=== PATIENT | female | born 1955 | race African-American/Black ===

== ENCOUNTER 2016-12-12 17:32 | Emergency (ER) | payer MEDICAID ==
--- NOTE | 2016-12-12 17:54 | ER Document Report ---
ED Medical Screen (RME) - General Chief Complaint: Post Surgical Pain Stated Complaint: PAIN,REDNESS,DRAINAGE AT SURGERY SITE Notes: Patient has drainage from his surgical site called her surgeon who advised she come to the emergency room for evaluation I greeted and performed a rapid initial assessment of this patient. Comprehensive ED assessment and evaluation of the patient, analysis of test results and completion of the medical decision making process will be conducted by additional ED providers. TRAVEL OUTSIDE OF THE [place] IN LAST 30 DAYS: No - Related Data Allergies/Adverse Reactions: No Known Allergies Allergy (Verified 11/09/16 11:16) Past Medical History - Past Medical History Cardiac Medical History: Reports: Hx Hypertension Denies: Hx Coronary Artery Disease, Hx Heart Attack Pulmonary Medical History: Denies: Hx Asthma, Hx Bronchitis, Hx COPD, Hx Pneumonia Neurological Medical History: Denies: Hx Cerebrovascular Accident, Hx Seizures Endocrine Medical History: Reports: Hx Diabetes Mellitus Type 2 GI Medical History: Reports: Hx Gastroesophageal Reflux Disease, Hx Hepatitis - C, Hx Hiatal Hernia Musculoskeltal Medical History: Denies Hx Arthritis, Reports Hx Multiple Sclerosis Infectious Medical History: Reports: Hx Hepatitis - C Past Surgical History: Reports: Hx Gynecologic Surgery - ectopic , fibroid tumor removed, ovarian cyst removed, Hx Hysterectomy, Hx Orthopedic Surgery - bunionectomy. Denies: Hx Pacemaker - Immunizations Immunizations up to date: Yes Hx Diphtheria, Pertussis, Tetanus Vaccination: Yes Physical Exam - Vital signs Vitals: Temp Pulse Resp BP Pulse Ox 98.3 F 85 18 112/78 99 12/12/16 17:52 12/12/16 17:52 12/12/16 17:52 12/12/16 17:52 12/12/16 17:52 Course - Vital Signs Vital signs: Temp Pulse Resp BP Pulse Ox 98.3 F 85 18 112/78 99 12/12/16 17:52 12/12/16 17:52 12/12/16 17:52 12/12/16 17:52 12/12/16 17:52
--- NOTE | 2016-12-12 18:42 | ER Document Report ---
ED Wound - General Chief Complaint: Incision Problem Stated Complaint: PAIN,REDNESS,DRAINAGE AT SURGERY SITE Time seen by provider: 18:42 Mode of Arrival: Ambulatory Information source: Patient TRAVEL OUTSIDE OF THE [place] IN LAST 30 DAYS: No - HPI Patient complains to provider of: Post surgical problem, Incision problem Occurred: Yesterday Onset/Duration: Intermittent Severity: Mild Skin Color: Normal Associated Symptoms: Drainage Notes: Patient is a 61-year-old female who recently had cervical spine surgery, states she had 2 metal discs placed, on Tuesday of this past week, she presents to the emergency room on the advice of her neurosurgeon for evaluation of her wound, patient reports over the past 2 days she has noticed a small amount of pus drainage from the wound, she is not currently on antibiotics, she denies a fever , no increased pain or swelling at the site, she does report a small amount of erythema - Related Data Allergies/Adverse Reactions: No Known Allergies Allergy (Verified 11/09/16 11:16) Past Medical History - General Information source: Patient - Social History Smoking Status: Never Smoker Family History: Reviewed & Not Pertinent Patient has suicidal ideation: No Patient has homicidal ideation: No - Past Medical History Cardiac Medical History: Reports: Hx Hypertension Denies: Hx Coronary Artery Disease, Hx Heart Attack Pulmonary Medical History: Denies: Hx Asthma, Hx Bronchitis, Hx COPD, Hx Pneumonia Neurological Medical History: Denies: Hx Cerebrovascular Accident, Hx Seizures Endocrine Medical History: Reports: Hx Diabetes Mellitus Type 2 Renal/ Medical History: Denies: Hx Peritoneal Dialysis GI Medical History: Reports: Hx Gastroesophageal Reflux Disease, Hx Hepatitis - C, Hx Hiatal Hernia Musculoskeltal Medical History: Denies Hx Arthritis, Reports Hx Multiple Sclerosis Infectious Medical History: Reports: Hx Hepatitis - C Past Surgical History: Reports: Hx Gynecologic Surgery - ectopic , fibroid tumor removed, ovarian cyst removed, Hx Hysterectomy, Hx Orthopedic Surgery - bunionectomy. Denies: Hx Pacemaker - Immunizations Immunizations up to date: Yes Hx Diphtheria, Pertussis, Tetanus Vaccination: Yes Hx Pneumococcal Vaccination: 11/28/00 Review of Systems - Review of Systems Constitutional: No symptoms reported EENT: No symptoms reported Cardiovascular: No symptoms reported Respiratory: No symptoms reported Gastrointestinal: No symptoms reported Genitourinary: No symptoms reported Female Genitourinary: No symptoms reported Musculoskeletal: No symptoms reported Skin: See HPI Hematologic/Lymphatic: No symptoms reported Neurological/Psychological: No symptoms reported -: Yes All other systems reviewed and negative Physical Exam - Vital signs Vitals: Temp Pulse Resp BP Pulse Ox 98.3 F 85 18 112/78 99 12/12/16 17:52 12/12/16 17:52 12/12/16 17:52 12/12/16 17:52 12/12/16 17:52 Interpretation: Normal - General General appearance: Appears well, Alert - HEENT Head: Normocephalic, Atraumatic Eyes: Normal Conjunctiva: Normal Extraocular movements intact: Yes Eyelashes: Normal Pupils: PERRL Neck: Other - Patient has a surgical incision to the right anterior portion of her neck, there is Dermabond overlying the wound, I am unable to express any drainage from the wound, there does not appear to be any area of wound dehiscence, there is mild tenderness over the wound, and a small 0.5 cm area of mild erythema at the most medial portion of the wound, no fluctuance - Respiratory Respiratory status: No respiratory distress Chest status: Nontender Breath sounds: Normal Chest palpation: Normal - Cardiovascular Rhythm: Regular Heart sounds: Normal auscultation Murmur: No - Abdominal Inspection: Normal Distension: No distension Bowel sounds: Normal Tenderness: Nontender Organomegaly: No organomegaly - Back Back: Normal, Nontender - Extremities General upper extremity: Normal inspection, Nontender, Normal color, Normal ROM , Normal temperature General lower extremity: Normal inspection, Nontender, Normal color, Normal ROM , Normal temperature, Normal weight bearing. No: Vijay's sign - Neurological Neuro grossly intact: Yes Cognition: Normal Orientation: AAOx4 [place] Coma Scale Eye Opening: Spontaneous [place] Coma Scale Verbal: Oriented [place] Coma Scale Motor: Obeys Commands [place] Coma Scale Total: 15 Speech: Normal Motor strength normal: LUE, RUE, LLE, RLE Sensory: Normal - Psychological Associated symptoms: Normal affect, Normal mood - Skin Skin Temperature: Warm Skin Moisture: Dry Skin Color: Normal Course - Re-evaluation Re-evalutation: 12/12/16 19:01 Patient was discussed with Dr. Calle, neurosurgeon who is partners with patient's Dr. Barker, he recommended patient be started on Bactrim DS twice a day until follow-up with Dr. barker, patient was given a dose of this in the emergency room and a prescription, she was advised to follow-up as scheduled or return if symptoms worsen, patient acknowledges understanding and agreement with this plan - Vital Signs Vital signs: Temp Pulse Resp BP Pulse Ox 98.3 F 85 18 112/78 99 12/12/16 17:52 12/12/16 17:52 12/12/16 17:52 12/12/16 17:52 12/12/16 17:52 Discharge - Discharge Clinical Impression: Wound drainage Condition: Stable Disposition: HOME, SELF-CARE Instructions: Wound Infection ([facility]) Additional Instructions: Follow up with your neurosurgeon as scheduled. Continue wound care as instructed by your surgeon. Return to the emergency room immediately if symptoms worsen or any additional concerns. Prescriptions: Sulfamethoxazole/Trimethoprim [Bactrim Ds Tablet] 1 each PO BID #20 tablet Referrals: MCKINLEY CONNOR MD [Primary Care Provider] - Follow up as needed
[2016-12-12] MEDS ORDERED: SULFAMETHOXAZOLE/TRIMETHOPRIM 800-160 MG TABLET PO ONE (18:47)
[2016-12-12 20:07] VITALS: BP 118/71
== END 2016-12-12 20:37 | disposition home or self-care (01) ==
LOC: ER 17:32
DX: Z47.89 Encounter for other orthopedic aftercare (principal); L53.9 Erythematous condition, unspecified; E11.9 Type 2 diabetes mellitus without complications; I10 Essential (primary) hypertension
CPT/HCPCS: 99283; J3490

== ENCOUNTER → 2016-12-24 | Outpatient (CLI) | payer MEDICAID | LOC: RAD 08:52 | PROVIDERS: ATTEND Specialist | DX: M54.12 Radiculopathy, cervical region (principal) | CPT/HCPCS: 72040 ==

== ENCOUNTER → 2017-02-15 | Outpatient (CLI) | payer MEDICAID ==
[2017-02-15 16:12] LABS: HEMATOCRIT 44.4 % (36.0-47.0); HEMOGLOBIN 15.1 g/dL (12.0-15.5); HGB HCT DIFFERENCE 0.9; MEAN CORPUSCULAR HEMOGLOBIN 30.4 pg (27.0-33.4); MEAN CORPUSCULAR VOLUME 89 fl (80-97); RED BLOOD COUNT 4.97 10^6/uL (3.72-5.28); RED CELL DISTRIBUTION WIDTH 12.4 % (11.5-14.0); WHITE BLOOD COUNT 12.2 10^3/uL (4.0-10.5)
[2017-02-15 16:20] LABS: ALANINE AMINOTRANSFERASE 26 U/L (9-52); ALBUMIN 4.6 g/dL (3.5-5.0); ALKALINE PHOSPHATASE 87 U/L (38-126); ASPARTATE AMINO TRANSFERASE 23 U/L (14-36); BILIRUBIN,DIRECT 0.2 mg/dL (0.0-0.4); BILIRUBIN,TOTAL 0.7 mg/dL (0.2-1.3); TOTAL PROTEIN 6.8 g/dL (6.3-8.2)
[2017-02-15 16:24] LABS: ALANINE AMINOTRANSFERASE 26 U/L (9-52); ALBUMIN 4.6 g/dL (3.5-5.0); ALKALINE PHOSPHATASE 87 U/L (38-126); ASPARTATE AMINO TRANSFERASE 23 U/L (14-36); BILIRUBIN,DIRECT 0.2 mg/dL (0.0-0.4); BILIRUBIN,TOTAL 0.7 mg/dL (0.2-1.3)
[2017-02-15 16:25] LABS: BASOPHILS % (MANUAL) 0 % (0-2); EOSINOPHILS % (MANUAL) 1 % (0-6); LYMPHOCYTES % (MANUAL) 63 % (13-45); TOTAL CELLS COUNTED 100; TOTAL PROTEIN 6.8 g/dL (6.3-8.2)
[2017-02-15 16:29] LABS: OVALOCYTES SLIGHT; POIKILOCYTOSIS SLIGHT
[2017-02-15 16:30] LABS: TEAR DROP CELLS SLIGHT
[2017-02-15 16:35] LABS: HEMATOCRIT 44.4 % (36.0-47.0); HEMOGLOBIN 15.1 g/dL (12.0-15.5); HGB HCT DIFFERENCE 0.9; MEAN CORPUSCULAR HEMOGLOBIN 30.4 pg (27.0-33.4); MEAN CORPUSCULAR VOLUME 89 fl (80-97); RED BLOOD COUNT 4.97 10^6/uL (3.72-5.28); RED CELL DISTRIBUTION WIDTH 12.4 % (11.5-14.0); WHITE BLOOD COUNT 12.2 10^3/uL (4.0-10.5)
[2017-02-15 16:36] LABS: BASOPHILS % (MANUAL) 0 % (0-2); EOSINOPHILS % (MANUAL) 1 % (0-6); LYMPHOCYTES % (MANUAL) 63 % (13-45); TOTAL CELLS COUNTED 100
[2017-02-15 16:37] LABS: OVALOCYTES SLIGHT; POIKILOCYTOSIS SLIGHT; TEAR DROP CELLS SLIGHT
== END ==
LOC: OD 14:41
DX: G35 Multiple sclerosis (principal); Z79.899 Other long term (current) drug therapy
CPT/HCPCS: 36415; 80076; 85025; 87522

== ENCOUNTER → 2017-02-15 | Outpatient (CLI) | payer MEDICAID | LOC: RAD 13:49 | PROVIDERS: ATTEND Specialist | DX: G35 Multiple sclerosis (principal); Z79.899 Other long term (current) drug therapy | CPT/HCPCS: 72040 ==

== ENCOUNTER → 2017-02-28 | Outpatient (CLI) | payer MEDICAID | LOC: OD 17:47 | PROVIDERS: ATTEND Plastic Surgery | DX: D22.4 Melanocytic nevi of scalp and neck (principal) | CPT/HCPCS: 88305 ==

== ENCOUNTER → 2017-03-16 | Outpatient (CLI) | payer MEDICAID ==
[2017-03-16 15:12] LABS: HEMATOCRIT 42.3 % (36.0-47.0); HEMOGLOBIN 14.4 g/dL (12.0-15.5); HGB HCT DIFFERENCE 0.9; MEAN CORPUSCULAR HGB CONC 34.1 g/dL (32.0-36.0); MEAN CORPUSCULAR VOLUME 88 fl (80-97); RED CELL DISTRIBUTION WIDTH 13.1 % (11.5-14.0); WHITE BLOOD COUNT 11.8 10^3/uL (4.0-10.5)
[2017-03-16 15:31] LABS: ALANINE AMINOTRANSFERASE 26 U/L (9-52); ALBUMIN 4.7 g/dL (3.5-5.0); ALKALINE PHOSPHATASE 76 U/L (38-126); ASPARTATE AMINO TRANSFERASE 20 U/L (14-36); BASOPHILS % (MANUAL) 0 % (0-2); BILIRUBIN,DIRECT 0.4 mg/dL (0.0-0.4); BILIRUBIN,TOTAL 0.9 mg/dL (0.2-1.3); EOSINOPHILS % (MANUAL) 2 % (0-6); TOTAL CELLS COUNTED 100; TOTAL PROTEIN 7.5 g/dL (6.3-8.2)
[2017-03-16 15:34] LABS: STOMATOCYTES SLIGHT
[2017-03-16 15:37] LABS: TARGET CELLS SLIGHT
[2017-03-16 15:39] LABS: LYMPHOCYTES % (MANUAL) 68 % (13-45)
== END ==
LOC: OD 14:18
PROVIDERS: ATTEND Specialist
DX: G35 Multiple sclerosis (principal)
CPT/HCPCS: 36415; 80076; 85025

== ENCOUNTER → 2017-03-31 | Outpatient (CLI) | payer MEDICAID | LOC: WI 14:03 | PROVIDERS: ATTEND Nurse Practitioner Psychiatric/Mental Health | DX: Z12.31 Encounter for screening mammogram for malignant neoplasm of breast (principal) | CPT/HCPCS: 77067; G0202 ==

== ENCOUNTER → 2017-04-01 | Outpatient (CLI) | payer MEDICAID ==
[2017-04-04 13:39] LABS: HEMATOCRIT 38.7 % (36.0-47.0); HEMOGLOBIN 13.1 g/dL (12.0-15.5); HGB HCT DIFFERENCE 0.6; MEAN CORPUSCULAR HEMOGLOBIN 30.2 pg (27.0-33.4); MEAN CORPUSCULAR HGB CONC 33.9 g/dL (32.0-36.0); MEAN CORPUSCULAR VOLUME 89 fl (80-97); RED BLOOD COUNT 4.34 10^6/uL (3.72-5.28); WHITE BLOOD COUNT 11.3 10^3/uL (4.0-10.5)
[2017-04-04 14:07] LABS: BASOPHILS % (MANUAL) 1 % (0-2); EOSINOPHILS % (MANUAL) 1 % (0-6); NUCLEATED RED BLOOD CELLS 1 /100 WBC (0); TOTAL CELLS COUNTED 100
[2017-04-04 14:11] LABS: POIKILOCYTOSIS SLIGHT; POLYCHROMASIA SLIGHT; TARGET CELLS SLIGHT
[2017-04-04 14:13] LABS: FREE T3 2.88 pg/mL (2.77-5.27)
[2017-04-04 14:16] LABS: LYMPHOCYTES % (MANUAL) 68 % (13-45); STOMATOCYTES SLIGHT
[2017-04-04 14:27] LABS: THYROID STIMULATING HORMONE 2.3 uIU/mL (0.47-4.68)
[2017-04-05 07:13] LABS: VITAMIN D 25-HYDROXY 39.9 ng/mL (30.0-100.0)
== END ==
LOC: OD 14:41
PROVIDERS: ATTEND Nurse Practitioner Psychiatric/Mental Health
DX: E05.90 Thyrotoxicosis, unspecified without thyrotoxic crisis or storm (principal); E55.9 Vitamin D deficiency, unspecified; R89.9 Unspecified abnormal finding in specimens from other organs, systems and tissues
CPT/HCPCS: 36415; 82306; 84439; 84443; 84481; 85025; 88184; 88185

== ENCOUNTER → 2017-05-04 | Outpatient (CLI) | payer MEDICAID ==
[2017-05-04 14:59] LABS: HEMATOCRIT 40.9 % (36.0-47.0); HEMOGLOBIN 13.7 g/dL (12.0-15.5); HGB HCT DIFFERENCE 0.2; MEAN CORPUSCULAR HGB CONC 33.6 g/dL (32.0-36.0); MEAN CORPUSCULAR VOLUME 89 fl (80-97); RED BLOOD COUNT 4.58 10^6/uL (3.72-5.28); RED CELL DISTRIBUTION WIDTH 13.7 % (11.5-14.0); WHITE BLOOD COUNT 10.7 10^3/uL (4.0-10.5)
[2017-05-04 15:24] LABS: ALANINE AMINOTRANSFERASE 28 U/L (9-52); ALBUMIN 4.4 g/dL (3.5-5.0); ALKALINE PHOSPHATASE 83 U/L (38-126); ASPARTATE AMINO TRANSFERASE 18 U/L (14-36); BILIRUBIN,DIRECT 0.3 mg/dL (0.0-0.4); BILIRUBIN,TOTAL 0.7 mg/dL (0.2-1.3); TOTAL PROTEIN 7.3 g/dL (6.3-8.2)
[2017-05-04 15:42] LABS: BASOPHILS % (MANUAL) 2 % (0-2); EOSINOPHILS % (MANUAL) 2 % (0-6); LYMPHOCYTES % (MANUAL) 65 % (13-45); TOTAL CELLS COUNTED 100
[2017-05-04 15:47] LABS: PLATELET CLUMPS PRESENT; POLYCHROMASIA SLIGHT
== END ==
LOC: OD 13:52
PROVIDERS: ATTEND Specialist
DX: G35 Multiple sclerosis (principal)
CPT/HCPCS: 36415; 80076; 85025

== ENCOUNTER → 2017-05-25 | Outpatient (CLI) | payer MEDICAID ==
--- NOTE | 2017-05-26 09:39 | RADIOLOGY REPORT (SQ) ---
EXAM DESCRIPTION: MRI HEAD COMBO COMPLETED DATE/TIME: 05/25/2017 9:34 pm REASON FOR STUDY: MULTIPLE SCLEROSIS G35 MULTIPLE SCLEROSIS COMPARISON: MRI brain 04/03/2015, 10/28/2011, 06/01/2007 TECHNIQUE: Multiplanar imaging includes noncontrasted T1, T2, FLAIR, diffusion with ADC map and post gadolinium contrast T1 sequences. Images stored on PACS. CONTRAST TYPE AND DOSE: 20 mL Multihance. RENAL FUNCTION: Creatinine 0.9 LIMITATIONS: None. FINDINGS: ANATOMY: No developmental anomalies. Normal vascular flow voids. Pituitary fossa normal. CSF SPACES: Normal in size and contour. No hemorrhage. CEREBRUM: Sulci and gyri normal in size and contour. Multiple foci of increased bifrontal and bipari etal subcortical and deep white matter signal on FLAIR imaging. These are compatible with the diagno sis of multiple sclerosis, and are very similar compared to study in 06/01/2007, accounting for differe nces in technique. No evidence of hemorrhage, mass, or extraaxial fluid collection. No abnormal enha ncement post contrast. POSTERIOR FOSSA: No signal alteration. No hemorrhage. No edema, masses, or mass effect. Internal bud tory canals, cerebellopontine angles, mastoids normal. No enhancing lesions. No abnormal enhancement post contrast. DIFFUSION IMAGING: Negative for acute or subacute infarction. ORBITS: No masses. Globes normal. PARANASAL SINUSES: No fluid levels. Mucosa normal. OTHER: No other significant finding. IMPRESSION: White matter lesions characteristic for demyelinating disease. Overall, this pattern is very similar compared to MRI 06/01/2007 TECHNICAL DOCUMENTATION: JOB ID: [id number] [id number]?- All Rights Reserved
--- NOTE | 2017-05-26 10:12 | RADIOLOGY REPORT (SQ) ---
EXAM DESCRIPTION: MRI CERVICAL SPINE COMBO COMPLETED DATE/TIME: 05/25/2017 9:34 pm REASON FOR STUDY: MULTIPLE SCLEROSIS G35 MULTIPLE SCLEROSIS COMPARISON: CT cervical spine 02/18/2013 MRI cervical spine 04/03/2015, 10/27/2016 Cervical spine plain films 12/24/2016, 02/15/2017 TECHNIQUE: Sagittal and Axial imaging includes T1, T2, STIR and gradient echo sequences. T1 post kaila olinium sequences. CONTRAST TYPE AND DOSE: 20 mL Multihance. RENAL FUNCTION: GFR > 60. LIMITATIONS: None. FINDINGS: ALIGNMENT: Normal. VERTEBRAE: Intact. BONE MARROW: Normal. No marrow replacement or reactive changes. DISCS: Prior fusion with hardware at C5-6 HARDWARE: Prior fusion with hardware at C5-6 CORD AND BASE OF BRAIN: Normal in size and signal intensity. SOFT TISSUES: No soft tissue masses. C1-C2: No significant spinal stenosis. C2-C3: No significant spinal stenosis or exit foraminal stenosis. Minimal central posterior disc bul ging C3-C4: No significant spinal stenosis or exit foraminal stenosis. Minimal central posterior disc bul ging C4-C5: Very mild posterior disc bulge and bony spurring is present. Mild ligamentum flavum thickenin g. These findings cause borderline central canal narrowing with partial effacement of the CSF around the cervical cord. No cord flattening or abnormal intrinsic cord signal. There is mild right claudia inal narrowing from facet and uncovertebral hypertrophy. No significant left foraminal narrowing. C5-C6: Prior discectomy and fusion. No central or foraminal stenosis. C6-C7: No significant spinal stenosis or exit foraminal stenosis. C7-T1: No significant spinal stenosis or exit foraminal stenosis. UPPER THORACIC: Incompletely imaged. No significant spinal stenosis or exit foraminal stenosis. ENHANCEMENT: No abnormal enhancement. OTHER: Chronic atrophy right parotid gland. IMPRESSION: Borderline central canal narrowing and mild right foraminal narrowing at C4-5. No significant central or foraminal stenosis at C5-6 COMMENT: None. TECHNICAL DOCUMENTATION: JOB ID: [id number]- All Rights Reserved
== END ==
LOC: RAD 18:58
PROVIDERS: ATTEND Specialist
DX: G35 Multiple sclerosis (principal)
CPT/HCPCS: 82565; 70553; 72156; A9577

== ENCOUNTER → 2017-06-03 | Outpatient (CLI) | payer MEDICAID ==
[2017-06-03 16:19] LABS: HEMATOCRIT 41.5 % (36.0-47.0); HEMOGLOBIN 13.8 g/dL (12.0-15.5); HGB HCT DIFFERENCE -0.1; MEAN CORPUSCULAR HEMOGLOBIN 30.2 pg (27.0-33.4); MEAN CORPUSCULAR HGB CONC 33.3 g/dL (32.0-36.0); MEAN CORPUSCULAR VOLUME 91 fl (80-97); RED BLOOD COUNT 4.58 10^6/uL (3.72-5.28); RED CELL DISTRIBUTION WIDTH 13.6 % (11.5-14.0); WHITE BLOOD COUNT 12.6 10^3/uL (4.0-10.5)
[2017-06-03 16:29] LABS: ALANINE AMINOTRANSFERASE 29 U/L (9-52); ALBUMIN 4.8 g/dL (3.5-5.0); ALKALINE PHOSPHATASE 95 U/L (38-126); ANION GAP 14 (5-19); ASPARTATE AMINO TRANSFERASE 18 U/L (14-36); BILIRUBIN,DIRECT 0.3 mg/dL (0.0-0.4); BILIRUBIN,TOTAL 0.6 mg/dL (0.2-1.3); BLOOD UREA NITROGEN 19 mg/dL (7-20); CALCIUM 9.9 mg/dL (8.4-10.2); CARBON DIOXIDE 28 mmol/L (22-30); CHLORIDE 100 mmol/L (98-107); CREATININE RESULT 0.89 mg/dL (0.52-1.25); GLUCOSE 151 mg/dL (75-110); POTASSIUM 4.5 mmol/L (3.6-5.0); SODIUM 141.9 mmol/L (137-145); TOTAL PROTEIN 7.9 g/dL (6.3-8.2)
[2017-06-03 16:44] LABS: BASOPHILS % (MANUAL) 0 % (0-2); EOSINOPHILS % (MANUAL) 1 % (0-6); LYMPHOCYTES % (MANUAL) 57 % (13-45); NUCLEATED RED BLOOD CELLS 1 /100 WBC (0); TOTAL CELLS COUNTED 100
[2017-06-03 16:45] LABS: POIKILOCYTOSIS SLIGHT; POLYCHROMASIA SLIGHT; STOMATOCYTES SLIGHT
[2017-06-03 17:10] LABS: ALANINE AMINOTRANSFERASE 29 U/L (9-52); ALBUMIN 4.8 g/dL (3.5-5.0); ALKALINE PHOSPHATASE 95 U/L (38-126); ASPARTATE AMINO TRANSFERASE 18 U/L (14-36); BILIRUBIN,DIRECT 0.3 mg/dL (0.0-0.4); BILIRUBIN,TOTAL 0.6 mg/dL (0.2-1.3); TOTAL PROTEIN 7.9 g/dL (6.3-8.2)
== END ==
LOC: OD 14:54
PROVIDERS: ATTEND Nurse Practitioner Psychiatric/Mental Health
DX: G35 Multiple sclerosis (principal); G89.4 Chronic pain syndrome
CPT/HCPCS: 36415; 80048; 80076; 85025; 87340

== ENCOUNTER → 2017-09-22 | Outpatient (CLI) | payer MEDICAID ==
--- NOTE | 2017-09-22 17:07 | RADIOLOGY REPORT (SQ) ---
EXAM DESCRIPTION: CERV SP 3 VIEW OR LESS COMPLETED DATE/TIME: 09/22/2017 2:03 pm REASON FOR STUDY: CERVICAL RADICULOPATHY (AP/FLEX/EXT ONLY) COMPARISON: January 2017 NUMBER OF VIEWS: Three views TECHNIQUE: AP and lateral flexion and extension views. LIMITATIONS: None. FINDINGS: MINERALIZATION: Normal. ALIGNMENT: Anatomic. FLEXION/EXTENSION: No instability. VERTEBRAE: Vertebral bodies of normal height. DISCS: Disc spacer is again identified at the C5-C6 level. There is some mild decrease in the C4-C5 disc space height. LATERAL AND POSTERIOR ELEMENTS: Facets, lateral masses, and spinous processes without significant fin dings. HARDWARE: Anterior orthopedic plate transfixed by orthopedic screws is identified at the C5-C6 level. SOFT TISSUES: No masses or calcifications. Lung apices clear. OTHER: No other significant finding. IMPRESSION: Postsurgical changes as noted above. NO INSTABILITY ON FLEXION/EXTENSION. TECHNICAL DOCUMENTATION: JOB ID: [id number] [employer]- All Rights Reserved
== END ==
LOC: RAD 13:47
PROVIDERS: ATTEND Specialist
DX: M54.12 Radiculopathy, cervical region (principal)
CPT/HCPCS: 72040

== ENCOUNTER → 2017-10-31 | Outpatient (CLI) | payer MEDICAID ==
[2017-10-31 13:59] LABS: HEMATOCRIT 40.6 % (36.0-47.0); HEMOGLOBIN 13.9 g/dL (12.0-15.5); HGB HCT DIFFERENCE 1.1; MEAN CORPUSCULAR HEMOGLOBIN 30.2 pg (27.0-33.4); MEAN CORPUSCULAR HGB CONC 34.4 g/dL (32.0-36.0); MEAN CORPUSCULAR VOLUME 88 fl (80-97); RED BLOOD COUNT 4.62 10^6/uL (3.72-5.28); RED CELL DISTRIBUTION WIDTH 13.3 % (11.5-14.0); WHITE BLOOD COUNT 6.4 10^3/uL (4.0-10.5)
[2017-10-31 14:16] LABS: ALANINE AMINOTRANSFERASE 29 U/L (9-52); ALBUMIN 4.6 g/dL (3.5-5.0); ALKALINE PHOSPHATASE 86 U/L (38-126); ASPARTATE AMINO TRANSFERASE 20 U/L (14-36); BILIRUBIN,DIRECT 0.4 mg/dL (0.0-0.4); BILIRUBIN,TOTAL 0.6 mg/dL (0.2-1.3)
[2017-10-31 14:34] LABS: ABSOLUTE EOSINOPHILS# (MANUAL) 0.4 10^3/uL (0.0-0.6); BASOPHILS % (MANUAL) 0 % (0-2); EOSINOPHILS % (MANUAL) 7 % (0-6); LYMPHOCYTES % (MANUAL) 43 % (13-45); TOTAL CELLS COUNTED 100
[2017-10-31 14:35] LABS: RBC MORPHOLOGY COMMENT NORMO-CYTIC/CHROMIC
== END ==
LOC: OD 12:59
PROVIDERS: ATTEND Specialist
DX: G35 Multiple sclerosis (principal)
CPT/HCPCS: 36415; 80076; 85025

== ENCOUNTER → 2017-12-07 | Outpatient (CLI) | payer MEDICAID ==
--- NOTE | 2017-12-07 18:07 | RADIOLOGY REPORT (SQ) ---
EXAM DESCRIPTION: U/S NON-OB PELVIS W/O DOP COMPLETED DATE/TIME: 12/07/2017 5:53 pm REASON FOR STUDY: PELVIC PAIN R10.2 PELVIC AND PERINEAL PAIN COMPARISON: None. TECHNIQUE: Dynamic and static grayscale images acquired of the pelvis via transabdominal approach an d recorded on PACS. Additional selected color Doppler and spectral images recorded. LIMITATIONS: None. FINDINGS: UTERUS: Surgically absent. RIGHT OVARY: No abnormal masses. RIGHT OVARY DOPPLER: Normal arterial vascular flow without evidence for torsion. LEFT OVARY: Surgically absent. FREE FLUID: None noted. OTHER: No other significant finding. MEASUREMENTS: UTERUS: Not applicable. ENDOMETRIAL STRIPE: Not applicable. RIGHT OVARY: 2.6 x 2.9 x 3.6 cm. LEFT OVARY: Not applicable. IMPRESSION: UNREMARKABLE PELVIC ULTRASOUND BY TRANSABDOMINAL TECHNIQUE. UTERUS AND LEFT OVARY SURGI EZEQUIEL ABSENT. RIGHT OVARY HAS NORMAL APPEARANCE. TECHNICAL DOCUMENTATION: JOB ID: [id number] [employer]- All Rights Reserved
== END ==
LOC: RAD 17:04
PROVIDERS: ATTEND Internal Medicine
DX: R10.2 Pelvic and perineal pain (principal); Z90.710 Acquired absence of both cervix and uterus
CPT/HCPCS: 76856

== ENCOUNTER → 2018-01-06 | Outpatient (CLI) | payer MEDICAID ==
--- NOTE | 2018-01-06 09:47 | RADIOLOGY REPORT (SQ) ---
EXAM DESCRIPTION: MRI HEAD COMBO COMPLETED DATE/TIME: 01/06/2018 9:30 am REASON FOR STUDY: MS (G35) G35 MULTIPLE SCLEROSIS COMPARISON: 10 prior MRI brain exams since 06/01/2007, most recently 05/25/2017, 04/03/2015 TECHNIQUE: Multiplanar imaging includes noncontrasted T1, T2, FLAIR, diffusion with ADC map and post gadolinium contrast T1 sequences. Images stored on PACS. CONTRAST TYPE AND DOSE: 15 mL Multihance. RENAL FUNCTION: GFR > 60. LIMITATIONS: None. FINDINGS: ANATOMY: No anomalies. Normal vascular flow voids. Pituitary fossa normal. CSF SPACES: Normal in size and contour. No hemorrhage. CEREBRUM: Multiple foci of increased FLAIR/ T2 signal are present in the subcortical and deep periven tricular white matter in the bifrontal and biparietal regions. The most confluent lesion is in the l eft periatrial white matter, about 15 mm in greatest diameter. These changes are similar compared to studies dating back to 2006. No MR evidence of acute ischemic change, acute intracranial hemorrhage , mass effect, or midline shift. No abnormal brain parenchymal or dural enhancement. Diffusion-weig hted images are negative for acute changes POSTERIOR FOSSA: No signal alteration. No hemorrhage. No edema, masses, or mass effect. Internal bud tory canals, cerebellopontine angles, mastoids normal. No enhancing lesions. No abnormal enhancement post contrast. DIFFUSION IMAGING: Negative for acute or subacute infarction. ORBITS: No masses. Globes normal. PARANASAL SINUSES: No fluid levels. Mucosa normal. OTHER: No other significant finding. IMPRESSION: Stable subcortical and deep periventricular white matter lesions in the bifrontal and bi parietal regions as compared to 2006. Compatible with clinical diagnosis of multiple sclerosis. EVIDENCE OF ACUTE STROKE: NO. TECHNICAL DOCUMENTATION: JOB ID: [id number] [employer]- All Rights Reserved
== END ==
LOC: RAD 07:22
PROVIDERS: ATTEND Specialist
DX: G35 Multiple sclerosis (principal)
CPT/HCPCS: 82565; 70553; A9577

== ENCOUNTER → 2018-03-23 | Outpatient (CLI) | payer MEDICAID ==
--- NOTE | 2018-03-23 13:11 | RADIOLOGY REPORT (SQ) ---
EXAM DESCRIPTION: MRI THORACIC SPINE COMBO COMPLETED DATE/TIME: 03/23/2018 12:00 pm REASON FOR STUDY: MID BACK PAIN M51.24 OTHER INTERVERTEBRAL DISC DISPLACEMENT, THORACIC CHIO COMPARISON: None. TECHNIQUE: Sagittal and Axial imaging includes T1, T2, STIR and gradient echo sequences. T1 post ga dolinium sequences. CONTRAST TYPE AND DOSE: 15 mL Multihance. RENAL FUNCTION: GFR > 60. LIMITATIONS: None. FINDINGS: LOCALIZER: No worrisome findings. ALIGNMENT: Normal. VERTEBRAE: Intact. BONE MARROW: Normal. No marrow replacement or reactive changes. HARDWARE: None in the spine. CORD: Normal in size and signal intensity. SOFT TISSUES: No soft tissue masses. THORACIC DISCS T1-T12: Mild desiccation and posterior disc bulge involving several of the mid thoraci c discs. No significant spinal stenosis or exit foraminal stenosis. LOWER CERVICAL: Incompletely imaged. Surgical changes and hardware. No significant spinal stenosis or exit foraminal stenosis. UPPER LUMBAR: Incompletely imaged. No significant spinal stenosis or exit foraminal stenosis. ENHANCEMENT: No abnormal enhancement. OTHER: No other significant finding. 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 NO SIGNIFICANT STENOSIS OR IM PINGEMENT. NO ENHANCING LESIONS. TECHNICAL DOCUMENTATION: JOB ID: [id number] [employer]- All Rights Reserved Reading location - IP/workstation name: [facility]
== END ==
LOC: RAD 10:48
PROVIDERS: ATTEND Internal Medicine
DX: M51.24 Other intervertebral disc displacement, thoracic region (principal); M54.2 Cervicalgia
CPT/HCPCS: 72157; A9577

== ENCOUNTER → 2018-03-23 | Outpatient (CLI) | payer MEDICAID ==
[2018-03-23 13:59] LABS: HEMATOCRIT 41.7 % (36.0-47.0); HEMOGLOBIN 13.8 g/dL (12.0-15.5); MEAN CORPUSCULAR HEMOGLOBIN 29.7 pg (27.0-33.4); MEAN CORPUSCULAR HGB CONC 33.2 g/dL (32.0-36.0); MEAN CORPUSCULAR VOLUME 89 fl (80-97); PLATELET COUNT 183 10^3/uL (150-450); RED BLOOD COUNT 4.67 10^6/uL (3.72-5.28); RED CELL DISTRIBUTION WIDTH 13.5 % (11.5-14.0); WHITE BLOOD COUNT 6.1 10^3/uL (4.0-10.5)
[2018-03-23 14:23] LABS: ALANINE AMINOTRANSFERASE 30 U/L (9-52); ALBUMIN 4.5 g/dL (3.5-5.0); ALKALINE PHOSPHATASE 79 U/L (38-126); ASPARTATE AMINO TRANSFERASE 22 U/L (14-36); BILIRUBIN,DIRECT 0.3 mg/dL (0.0-0.4); BILIRUBIN,TOTAL 0.5 mg/dL (0.2-1.3); TOTAL PROTEIN 6.8 g/dL (6.3-8.2)
[2018-03-23 14:31] LABS: ABSOLUTE LYMPHOCYTES# (MANUAL) 3.5 10^3/uL (0.5-4.7); ABSOLUTE MONOCYTES # (MANUAL) 0.4 10^3/uL (0.1-1.4); BASOPHILS % (MANUAL) 0 % (0-2); EOSINOPHILS % (MANUAL) 3 % (0-6); HYPOCHROMASIA SLIGHT; LYMPHOCYTES % (MANUAL) 53 % (13-45); MONOCYTES % (MANUAL) 6 % (3-13); PLATELET COMMENT ADEQUATE; POLYCHROMASIA SLIGHT; SEGMENTED NEUTROPHILS % (MAN) 33 % (42-78); TOTAL CELLS COUNTED 100
== END ==
LOC: OD 12:08
PROVIDERS: ATTEND Specialist
DX: G35 Multiple sclerosis (principal)
CPT/HCPCS: 36415; 80076; 85025

== ENCOUNTER → 2018-03-27 | Outpatient (CLI) | payer MEDICAID ==
--- NOTE | 2018-03-27 13:22 | RADIOLOGY REPORT (SQ) ---
EXAM DESCRIPTION: U/S ABDOMEN COMPLETE W/O DOP COMPLETED DATE/TIME: 03/27/2018 10:49 am REASON FOR STUDY: R10.11 RIGHT UPPER QUADRANT PAIN G89.29 OTHER CHRONIC PAIN R10.11 RIGHT UPPER JEROME DRANT PAIN G89.29 OTHER CHRONIC PAIN COMPARISON: 01/18/2018 TECHNIQUE: Dynamic and static grayscale images acquired of the abdomen and recorded on PACS. Additio nal selected color Doppler and spectral images recorded. LIMITATIONS: None. FINDINGS: PANCREAS: No masses. Visualized pancreatic duct normal caliber. LIVER: 13.9 cm. Normal echotexture. LIVER VASCULATURE: Normal directional flow of the main portal vein and hepatic veins. GALLBLADDER: No stones. Normal wall thickness. No pericholecystic fluid. ULTRASOUND-DETECTED MANRIQUE'S SIGN: Negative. INTRAHEPATIC DUCTS AND COMMON DUCT: CBD and intrahepatic ducts normal caliber. No filling defects. INFERIOR VENA CAVA: Patent. Not well seen. AORTA: No aneurysm. RIGHT KIDNEY: Normal size, 10.2 cm. Normal echogenicity. No solid masses. There is a 3.6 cm cys t. No hydronephrosis. No calcifications. LEFT KIDNEY: Normal size, 9.5 cm. Normal echogenicity. No solid or suspicious masses. No hydro nephrosis. No calcifications. SPLEEN: Normal size, 8.1 cm. No masses. PERITONEAL AND PLEURAL SPACES: No ascites or effusions. OTHER: No other significant finding. IMPRESSION: NORMAL ABDOMINAL ULTRASOUND. TECHNICAL DOCUMENTATION: JOB ID: [id number] [employer]- All Rights Reserved Reading location - IP/workstation name: [email or web address]
== END ==
LOC: RAD 09:29
PROVIDERS: ATTEND Internal Medicine
DX: R10.11 Right upper quadrant pain (principal); G89.29 Other chronic pain
CPT/HCPCS: 76700

== ENCOUNTER → 2018-04-03 | Outpatient (CLI) | payer MEDICAID ==
--- NOTE | 2018-04-03 15:23 | WOMENS IMAGING REPORT ---
EXAM DESCRIPTION: BILAT SCREENING MAMMO W/CAD COMPLETED DATE/TIME: 04/03/2018 1:55 pm REASON FOR STUDY: ROUTINE SCREENING;Z12.31 Z12.31 ENCNTR SCREEN MAMMOGRAM FOR MALIGNANT NEOPLASM OF IKE COMPARISON: [id number] TECHNIQUE: Standard craniocaudal and mediolateral oblique views of each breast recorded using Player[employer]uel[employer] l acquisition. LIMITATIONS: None. FINDINGS: Findings present which are benign by mammographic criteria. No suspicious masses, calcifi cations or architectural distortion. Pertinent benign findings: Vascular and secretory calcifications. Read with the assistance of CAD. .[facility] - R2 Cenova Version 1.3 .[facility] - R2 Cenova Version 1.3 .[facility] - R2 Cenova Version 2.4 .[facility] - R2 Cenova Version 2.4 .[facility] - R2 Broker[employer] Manager Version 9.2 Benign mammographic findings may include one or more of the following: Smooth masses, popcorn/rim/co arse calcifications, asymmetries, post-procedure changes, and lesions with long-standing stability. IMPRESSION: BENIGN MAMMOGRAPHIC FINDINGS. BIRADS 2 BREAST DENSITY: b. There are scattered areas of fibroglandular density. BIRAD: 2 BENIGN FINDING(S) RECOMMENDATION: ROUTINE SCREENING COMMENT: The patient has been notified of the results by letter per SA requirements. Additional no tification policies are in place for contacting patient with suspicious or incomplete findings. Quality ID #225: The [employer] recommends an annual screening mammogram for women aged 40 years or over. This facility utilizes a reminder system to ensure that all patients receive reminder letters, and/or direct phone calls for appointments. This includes reminders for routine scr eening mammograms, diagnostic mammograms, or other Breast Imaging Interventions when appropriate. Th is patient will be placed in the appropriate reminder system. The [employer] (ACR) has developed recommendations for screening MRI of the breast s in certain patient populations, to be used in conjunction with mammography. Breast MRI surveillanc e may be appropriate for women with more than 20% lifetime risk of developing breast cancer as deter mined by genetic testing, significant family history of the disease, or history of mantle radiation f or Hodgkins Disease. ACR Practice Guidelines 2008. TECHNICAL DOCUMENTATION: FINDING NUMBER: (1) ASSESSMENT: (1) JOB ID: [id number] [employer]- All Rights Reserved Reading location - IP/workstation name: [facility]
== END ==
LOC: WI 13:06
PROVIDERS: ATTEND Internal Medicine Geriatric Medicine
DX: Z12.31 Encounter for screening mammogram for malignant neoplasm of breast (principal)
CPT/HCPCS: 77067

== ENCOUNTER 2018-08-22 21:46 | Emergency (ER) | payer MEDICAID ==
[2018-08-22 23:01] LABS: AMORPHOUS SEDIMENT,URINE TRACE /HPF; APPEARANCE,URINE SLIGHTLY-CLOUDY; BILIRUBIN,URINE NEGATIVE (NEGATIVE); COLOR,URINE STRAW; GLUCOSE, URINE 150 mg/dL (NEGATIVE); KETONES,URINE NEGATIVE (NEGATIVE); LEUKOCYTE ESTERASE,URINE LARGE (NEGATIVE); NITRITE,URINE NEGATIVE (NEGATIVE); PROTEIN,URINE NEGATIVE (NEGATIVE)
--- NOTE | 2018-08-22 23:42 | ER Document Report ---
ED Medical Screen (RME) - General Chief Complaint: Flank Pain Stated Complaint: FLANK PAIN Time Seen by Provider: 08/22/18 23:32 Notes: Patient presents with sudden onset of left-sided flank pain higher to arrival in the emergency department. Patient denies any dysuria but states over the last several days her urine has become more cloudy than normal. She does have a history of kidney infections in the past where she has had to be hospitalized but denies any strip kidney stones. She continues to have left- sided flank pain in the emergency department I have greeted and performed a rapid initial assessment of this patient. A comprehensive ED assessment and evaluation of the patient, analysis of test results and completion of the medical decision making process will be conducted by additional ED providers. PHYSICAL EXAMINATION: GENERAL: Well-appearing, well-nourished and in no acute distress. HEAD: Atraumatic, normocephalic. EYES: Pupils equal round extraocular movements intact, conjunctiva are normal. ENT: Nares patent NECK: Normal range of motion LUNGS: No respiratory distress NEUROLOGICAL: Normal speech, normal gait. PSYCH: Normal mood, normal affect. SKIN: Warm, Dry, normal turgor, no rashes or lesions noted. TRAVEL OUTSIDE OF THE [place] IN LAST 30 DAYS: No - Related Data Allergies/Adverse Reactions: No Known Allergies Allergy (Verified 11/09/16 11:16) Past Medical History - Past Medical History Cardiac Medical History: Reports: Hx Hypertension Denies: Hx Coronary Artery Disease, Hx Heart Attack Pulmonary Medical History: Denies: Hx Asthma, Hx Bronchitis, Hx COPD, Hx Pneumonia Neurological Medical History: Denies: Hx Cerebrovascular Accident, Hx Seizures Endocrine Medical History: Reports: Hx Diabetes Mellitus Type 2 Renal/ Medical History: Denies: Hx Peritoneal Dialysis GI Medical History: Reports: Hx Gastroesophageal Reflux Disease, Hx Hepatitis - C, Hx Hiatal Hernia Musculoskeltal Medical History: Reports Hx Arthritis, Reports Hx Multiple Sclerosis Infectious Medical History: Reports: Hx Hepatitis - C Past Surgical History: Reports: Hx Gynecologic Surgery - ectopic , fibroid tumor removed, ovarian cyst removed, Hx Hysterectomy, Hx Orthopedic Surgery - bunionectomy. Denies: Hx Pacemaker - Immunizations Immunizations up to date: Yes Hx Diphtheria, Pertussis, Tetanus Vaccination: Yes Physical Exam - Vital signs Vitals: Temp Pulse BP Pulse Ox 98.0 F 72 161/84 H 98 08/22/18 22:01 08/22/18 22:01 08/22/18 22:01 08/22/18 22:01 Course - Vital Signs Vital signs: Temp Pulse Resp BP Pulse Ox 98.0 F 72 161/84 H 98 08/22/18 22:01 08/22/18 22:01 08/22/18 22:01 08/22/18 22:01 - Laboratory Laboratory results interpreted by me: 08/22/18 22:00 Urine Glucose (UA) 150 H Urine Blood MODERATE H Urine Urobilinogen 4.0 H Ur Leukocyte Esterase LARGE H Doctor's Discharge - Discharge Referrals: MCKINLEY CONNOR MD [Primary Care Provider] - Follow up as needed
[2018-08-23] MEDS ORDERED: FENTANYL CITRATE INJ/PF 100 MCG/2 ML AMPUL IV ONE (00:02)
[2018-08-23 00:03] LABS: ABSOLUTE BASOPHILS # (AUTO) 0.1 10^3/uL (0.0-0.2); ABSOLUTE EOSINOPHILS # (AUTO) 0.1 10^3/uL (0.0-0.6); ABSOLUTE LYMPHOCYTES (AUTO) 2.8 10^3/uL (0.5-4.7); ABSOLUTE MONOCYTES (AUTO) 0.8 10^3/uL (0.1-1.4); ABSOLUTE NEUT (AUTO) 7.6 10^3/uL (1.7-8.2); BASOPHILS % (AUTO) 0.6 % (0-2); EOSINOPHILS % (AUTO) 0.6 % (0-6); HEMATOCRIT 42.4 % (36.0-47.0); HEMOGLOBIN 14.3 g/dL (12.0-15.5); LYMPHOCYTES % (AUTO) 24.9 % (13-45); MEAN CORPUSCULAR HEMOGLOBIN 30.2 pg (27.0-33.4); MEAN CORPUSCULAR HGB CONC 33.8 g/dL (32.0-36.0); MEAN CORPUSCULAR VOLUME 90 fl (80-97); PLATELET COUNT 193 10^3/uL (150-450); RED BLOOD COUNT 4.74 10^6/uL (3.72-5.28); RED CELL DISTRIBUTION WIDTH 13.3 % (11.5-14.0); SEGMENTED NEUTROPHILS % (AUTO) 66.9 % (42-78); TOTAL CELLS COUNTED % (AUTO) 100 %; WHITE BLOOD COUNT 11.4 10^3/uL (4.0-10.5)
[2018-08-23 00:15] LABS: ALANINE AMINOTRANSFERASE 25 U/L (9-52); ALBUMIN 4.8 g/dL (3.5-5.0); ALKALINE PHOSPHATASE 91 U/L (38-126); ANION GAP 13 (5-19); ASPARTATE AMINO TRANSFERASE 21 U/L (14-36); BILIRUBIN,DIRECT 0.3 mg/dL (0.0-0.4); BILIRUBIN,TOTAL 0.6 mg/dL (0.2-1.3); BLOOD UREA NITROGEN 16 mg/dL (7-20); CALCIUM 10.2 mg/dL (8.4-10.2); CARBON DIOXIDE 31 mmol/L (22-30); CHLORIDE 98 mmol/L (98-107); GLUCOSE 227 mg/dL (75-110); LIPASE 229.4 U/L (23-300); POTASSIUM 3.7 mmol/L (3.6-5.0); SODIUM 141.7 mmol/L (137-145)
--- NOTE | 2018-08-23 01:56 | ER Document Report ---
HPI - HPI Pain Level: 5 Notes: Patient is a 62-year-old female with a history of type 2 diabetes, MS, hypertension, previous kidney infections who presents to the ED complaining of left flank pain and soreness that began last night with urinary urgency and frequency. Patient states that she had been eating and drinking without any difficulties. She is having normal bowel movements. The pain does not radiate otherwise. Denies any drug allergies. She has no other concerns or complaints at this time. Denies any headache, fever, URI, sore throat, chest pain, palpitations, syncope, cough, shortness of breath, wheeze, dyspnea, abdominal pain, nausea/vomiting/diarrhea, urinary retention, dysuria, hematuria, loss of control of bowel or bladder, numbness/tingling, saddle anesthesia, muscle paralysis/weakness, or rash. - ROS Systems Reviewed and Negative: Yes All other systems reviewed and negative - REPRODUCTIVE Reproductive: DENIES: : Past Medical History - Social History Smoking Status: Unknown if Ever Smoked Family History: Reviewed & Not Pertinent Patient has suicidal ideation: No Patient has homicidal ideation: No - Past Medical History Cardiac Medical History: Reports: Hx Hypertension Denies: Hx Coronary Artery Disease, Hx Heart Attack Pulmonary Medical History: Denies: Hx Asthma, Hx Bronchitis, Hx COPD, Hx Pneumonia Neurological Medical History: Denies: Hx Cerebrovascular Accident, Hx Seizures Endocrine Medical History: Reports: Hx Diabetes Mellitus Type 2 Renal/ Medical History: Denies: Hx Peritoneal Dialysis GI Medical History: Reports: Hx Gastroesophageal Reflux Disease, Hx Hepatitis - C, Hx Hiatal Hernia Musculoskeletal Medical History: Reports Hx Arthritis, Reports Hx Multiple Sclerosis Infectious Medical History: Reports: Hx Hepatitis - C Past Surgical History: Reports: Hx Gynecologic Surgery - ectopic , fibroid tumor removed, ovarian cyst removed, Hx Hysterectomy, Hx Orthopedic Surgery - bunionectomy. Denies: Hx Pacemaker - Immunizations Immunizations up to date: Yes Hx Diphtheria, Pertussis, Tetanus Vaccination: Yes Hx Pneumococcal Vaccination: 11/28/00 Vertical Provider Document - CONSTITUTIONAL Agree With Documented VS: Yes Notes: PHYSICAL EXAMINATION: GENERAL: Well-appearing, well-nourished and in no acute distress. HEAD: Atraumatic, normocephalic. EYES: Pupils equal round and reactive to light, extraocular movements intact, sclera anicteric, conjunctiva are normal. ENT: Nares patent and without discharge. oropharynx clear without exudates. No tonsilar hypertrophy or erythema. Moist mucous membranes. NECK: Normal range of motion, supple without lymphadenopathy LUNGS: Breath sounds clear to auscultation bilaterally and equal. No wheezes rales or rhonchi. HEART: Regular rate and rhythm without murmurs, rubs, gallops. ABDOMEN: Soft, nontender, nondistended abdomen. No guarding, no rebound. No masses appreciated. Normal bowel sounds present. + mild left CVA tenderness. Musculoskeletal: FROM to passive/active. Strength 5+/5. Extremities: No cyanosis, clubbing, or edema b/l. Peripheral pulses 2+. Capillary refill less than 3 seconds. NEUROLOGICAL: Normal speech, normal gait. PSYCH: Normal mood, normal affect. SKIN: Warm, Dry, normal turgor, no rashes or lesions noted. - INFECTION CONTROL TRAVEL OUTSIDE OF THE [place] IN LAST 30 DAYS: No Course - Re-evaluation Re-evalutation: 08/23/18 01:53 Patient is an afebrile, well-hydrated, 62-year-old female who presents to the ED with an acute UTI, suspect mild pyelonephritis. Vitals are acceptable without any significant tachycardia, tachypnea, or hypoxia. PE is otherwise unremarkable. Patient is nontoxic-appearing and is tolerating p.o. without any difficulties. Rocephin was given IV today. CBC and CMP were acceptable. See urinalysis results. Urine culture is pending. No further labs or imaging warranted at this time based on H&P. Patient's abdomen is soft and nontender. Lungs are clear to auscultation bilaterally. Low suspicion/risk for acute appendicitis, bowel obstruction, acute cholecystitis, acute cholangitis, perforated diverticulitis, incarcerated hernia, pancreatitis, perforated ulcer, peritonitis, sepsis, or other systemic emergent condition at this time. Patient is aware that her condition can change from initial presentation and she needs to monitor symptoms closely and seek medical attention if any acute changes. Rx for keflex. Conservative measures otherwise for symptoms. Recheck with your PCM in 3-5 days. Return to the ED with any worsening/concerning symptoms otherwise as reviewed in discharge. Patient is in agreement. - Vital Signs Vital signs: Temp Pulse Resp BP Pulse Ox 98.0 F 72 161/84 H 98 08/22/18 22:01 08/22/18 22:01 08/22/18 22:01 08/22/18 22:01 - Laboratory Result Diagrams: 08/22/18 23:49 08/22/18 23:49 Laboratory results interpreted by me: 08/22/18 08/22/18 08/22/18 22:00 23:49 23:49 WBC 11.4 H Carbon Dioxide 31 H Est GFR (Non-Af Amer) 53 L Glucose 227 H Urine Glucose (UA) 150 H Urine Blood MODERATE H Urine Urobilinogen 4.0 H Ur Leukocyte Esterase LARGE H Discharge - Discharge Clinical Impression: Acute UTI (urinary tract infection) Condition: Stable Disposition: HOME, SELF-CARE Instructions: Cephalexin ([facility]), Urinary Tract Infection ([facility]) Additional Instructions: Push fluids (i.e. water, cranberry juice) Proper hygenic technique Keep the skin clean Tylenol/ibuprofen as needed Take medications as directed F/u with your PCM in 3-5 days for a recheck Consider consult with a Urologist for ongoing/worsening symptoms. Return to the ED with any worsening symptoms and/or development of fever, headache, chest pain, palpitations, syncope, shortness of breath, trouble breathing, abdominal pain, n/v/d, blood in stool/urine, loss of control of bowel /bladder, urinary retention, or other worsening symptoms that are concerning to you. Prescriptions: Cephalexin Monohydrate [Keflex 500 mg Capsule] 500 mg PO TID #21 capsule Forms: Elevated Blood Pressure Referrals: MCKINLEY CONNOR MD [Primary Care Provider] - Follow up in 3-5 days
[2018-08-23] MEDS ORDERED: CEFTRIAXONE 1 GM/D5W RTU 1 GM/50 ML RTUPB IV ONE (02:00)
[2018-08-23] MEDS ORDERED: CEFTRIAXONE INJ 1000 MG VIAL ONE (02:02)
[2018-08-23 03:10] VITALS: BP 133/72
== END 2018-08-23 03:11 | disposition home or self-care (01) ==
LOC: ER 21:46
DX: N39.0 Urinary tract infection, site not specified (principal); E11.9 Type 2 diabetes mellitus without complications; I10 Essential (primary) hypertension
CPT/HCPCS: 99284; 96375; 96365; 36415; 87086; 83690; 85025; 87088; 80053; 81001; 87186; J3010; J0696

== ENCOUNTER → 2018-10-18 | Outpatient (CLI) | payer MEDICAID ==
--- NOTE | 2018-10-18 14:49 | RADIOLOGY REPORT (SQ) ---
EXAM DESCRIPTION: ARTERIAL LOWER EXTREM BILAT COMPLETED DATE/TIME: 10/18/2018 2:16 pm REASON FOR STUDY: PVD I73.9 PERIPHERAL VASCULAR DISEASE, UNSPECIFIED COMPARISON: None. TECHNIQUE: Dynamic and static rocha scale and color images acquired of the lower extremity arteries. Additional selected spectral images recorded. ABIs not performed. LIMITATIONS: None. FINDINGS: RIGHT LEG: ABIS: Normal, over 1.0. INFLOW ARTERIES: Normal, no obstruction evident. FEMORAL ARTERIES:Multiphasic waveforms. Normal, no velocity elevation to suggest focal stenosis. Norm al color Doppler evaluation. No aneurysm. POPLITEAL ARTERY:Multiphasic waveforms. Normal, no velocity elevation to suggest focal stenosis. Norm al color Doppler evaluation. No aneurysm. PATENT TIBIOPERONEAL TRUNK AND 3 VESSEL RUNOFF: Yes, normal vessels. TBI: Not performed. OTHER: Five toe plethysmography is normal. LEFT LEG: ABIS: Normal, over 1.0. INFLOW ARTERIES: Normal, no obstruction evident. FEMORAL ARTERIES:Multiphasic waveforms. Normal, no velocity elevation to suggest focal stenosis. Norm al color Doppler evaluation. No aneurysm. POPLITEAL ARTERY:Multiphasic waveforms. Normal, no velocity elevation to suggest focal stenosis. Norm al color Doppler evaluation. No aneurysm. PATENT TIBIOPERONEAL TRUNK AND 3 VESSEL RUNOFF: Yes, normal vessels. TBI: Not performed OTHER: Five toe plethysmography is normal. IMPRESSION: NORMAL BILATERAL LOWER EXTREMITY ARTERIAL DOPPLER. COMMENT: [facility] NORMAL: Greater than 1.0 MINIMAL DISEASE: 0.9 to 1.0 CLAUDICATION: 0.5 to 0.9 SEVERE ARTERIAL DISEASE: Less than 0.5 [facility] NORMAL: Greater than 1.0 (1.2 If Heavy Calcifications) NORMAL TO MILD ISCHEMIA: 0.8 to 1.0 MODERATE ISCHEMIA: 0.4 to 0.8 SEVERE ISCHEMIA: Less than 0.4 TECHNICAL DOCUMENTATION: JOB ID: [id number] [employer]- All Rights Reserved Reading location - IP/workstation name: [email or web address]
== END ==
LOC: SP 14:10
PROVIDERS: ATTEND Podiatrist Foot & Ankle Surgery
DX: I73.9 Peripheral vascular disease, unspecified (principal)
CPT/HCPCS: 93925

== ENCOUNTER → 2018-11-03 | Outpatient (CLI) | payer MEDICAID ==
--- NOTE | 2018-11-03 10:01 | RADIOLOGY REPORT (SQ) ---
EXAM DESCRIPTION: MRI HEAD COMBO COMPLETED DATE/TIME: 11/03/2018 9:32 am REASON FOR STUDY: G35 MULTIPLE SCLEROSIS G35 MULTIPLE SCLEROSIS COMPARISON: MRI brain without and with contrast 06/01/2007, 01/07/2010, 05/25/2017, 01/06/2018 TECHNIQUE: Multiplanar imaging includes noncontrasted T1, T2, FLAIR, diffusion with ADC map and post gadolinium contrast T1 sequences. Images stored on PACS. CONTRAST TYPE AND DOSE: 15 mL Dotarem. RENAL FUNCTION: GFR > 60. LIMITATIONS: None. FINDINGS: ANATOMY: No developmental anomalies. Normal vascular flow voids. Pituitary fossa normal. CSF SPACES: Normal in size and contour. No hemorrhage. CEREBRUM: Stable foci of increased FLAIR/ T2 signal in the bifrontal and biparietal subcortical and d eep white matter, most prominent in the left periatrial region. This is similar compared to 2006. No diffusion-weighted signal abnormalities or contrast enhancement worrisome for acute demyelinating plaque or acute/subacute ischemic change. No MR evidence of acute intracranial hemorrhage, mass effe ct, or midline shift. POSTERIOR FOSSA: No signal alteration. No hemorrhage. No edema, masses, or mass effect. Internal bud tory canals, cerebellopontine angles, mastoids normal. No enhancing lesions. No abnormal enhancement post contrast. DIFFUSION IMAGING: Negative for acute or subacute infarction. ORBITS: No masses. Globes normal. PARANASAL SINUSES: No fluid levels. Mucosa normal. OTHER: No other significant finding. IMPRESSION: Stable appearance of the brain with stable white matter lesions from known multiple scle rosis EVIDENCE OF ACUTE STROKE: NO. TECHNICAL DOCUMENTATION: JOB ID: [id number] [employer]- All Rights Reserved Reading location - IP/workstation name: [facility]
== END ==
LOC: RAD 15:14
PROVIDERS: ATTEND Specialist
DX: G35 Multiple sclerosis (principal)
CPT/HCPCS: 82565; 70553; A9576

== ENCOUNTER → 2018-11-30 | Outpatient (CLI) | payer MEDICAID ==
[2018-11-30 12:32] LABS: ABSOLUTE EOSINOPHILS # (AUTO) 0.2 10^3/uL (0.0-0.6); ABSOLUTE LYMPHOCYTES (AUTO) 2.9 10^3/uL (0.5-4.7); ABSOLUTE MONOCYTES (AUTO) 0.4 10^3/uL (0.1-1.4); BASOPHILS % (AUTO) 0.4 % (0-2); EOSINOPHILS % (AUTO) 2.3 % (0-6); HEMATOCRIT 40.9 % (36.0-47.0); HEMOGLOBIN 13.8 g/dL (12.0-15.5); LYMPHOCYTES % (AUTO) 44.5 % (13-45); MEAN CORPUSCULAR HEMOGLOBIN 30.2 pg (27.0-33.4); MEAN CORPUSCULAR HGB CONC 33.7 g/dL (32.0-36.0); MEAN CORPUSCULAR VOLUME 90 fl (80-97); MONOCYTES % (AUTO) 6.8 % (3-13); PLATELET COUNT 169 10^3/uL (150-450); RED BLOOD COUNT 4.56 10^6/uL (3.72-5.28); RED CELL DISTRIBUTION WIDTH 13.8 % (11.5-14.0); TOTAL CELLS COUNTED % (AUTO) 100 %; WHITE BLOOD COUNT 6.5 10^3/uL (4.0-10.5)
[2018-11-30 12:56] LABS: ALANINE AMINOTRANSFERASE 19 U/L (9-52); ALBUMIN 4.5 g/dL (3.5-5.0); ALKALINE PHOSPHATASE 84 U/L (38-126); ANION GAP 10 (5-19); ASPARTATE AMINO TRANSFERASE 19 U/L (14-36); BILIRUBIN,DIRECT 0.2 mg/dL (0.0-0.4); BILIRUBIN,TOTAL 0.7 mg/dL (0.2-1.3); BLOOD UREA NITROGEN 23 mg/dL (7-20); CALCIUM 9.8 mg/dL (8.4-10.2); CARBON DIOXIDE 31 mmol/L (22-30); CHLORIDE 99 mmol/L (98-107); GLUCOSE 174 mg/dL (75-110); POTASSIUM 4.1 mmol/L (3.6-5.0); TOTAL PROTEIN 7.2 g/dL (6.3-8.2)
[2018-11-30 13:00] LABS: ALANINE AMINOTRANSFERASE 19 U/L (9-52); ALBUMIN 4.5 g/dL (3.5-5.0); ALKALINE PHOSPHATASE 84 U/L (38-126); ASPARTATE AMINO TRANSFERASE 19 U/L (14-36); BILIRUBIN,DIRECT 0.2 mg/dL (0.0-0.4); BILIRUBIN,TOTAL 0.7 mg/dL (0.2-1.3); TOTAL PROTEIN 7.2 g/dL (6.3-8.2)
== END ==
LOC: OD 11:36
PROVIDERS: ATTEND Specialist
DX: G35 Multiple sclerosis (principal); E11.65 Type 2 diabetes mellitus with hyperglycemia
CPT/HCPCS: 36415; 80053; 80076; 85025

== ENCOUNTER → 2019-01-12 | Outpatient (CLI) | payer MEDICAID ==
--- NOTE | 2019-01-12 13:33 | RADIOLOGY REPORT (SQ) ---
EXAM DESCRIPTION: MRI LUMBAR SPINE WITHOUT COMPLETED DATE/TIME: 01/12/2019 11:38 am REASON FOR STUDY: OTHER INTERVERTEBRAL DISC DEGENERATION, LUMBAR REGION (M51.36) M51.36 OTHER INTER VERTEBRAL DISC DEGENERATION, LUMBAR REGION COMPARISON: 04/06/2016 TECHNIQUE: Sagittal and Axial imaging includes T1, T2, STIR and gradient echo sequences. Coronal T2/ HASTE imaging. LIMITATIONS: None. FINDINGS: VISUALIZED UPPER ABDOMEN: Limited evaluation. No acute or suspicious findings suggested. SEGMENTATION: No transitional anatomy. The lowest well-developed disc space is labeled L5-S1. ALIGNMENT: Anatomic. VERTEBRAE: Intact. BONE MARROW: Chronic heterogeneous appearance, stable. No for marrow replacing process. No signific ant edema. DISC SIGNAL: Disc desiccation with signal loss at L3 through S1. POSTERIOR ELEMENTS: Generally intact. No pars defect evident. HARDWARE: None in the spine. CORD AND CONUS: Normal in signal intensity. The conus terminates at L2. SOFT TISSUES: No aortic aneurysm seen. No bulky retroperitoneal adenopathy or mass. No paraspinal mas s or fluid. Right renal cyst, partially seen. L1-L2: No significant spinal stenosis. Mild bilateral neural foraminal narrowing, left greater than right. L2-L3: No significant spinal stenosis or exit foraminal stenosis. L3-L4: Broad disc bulge and ligamentum flavum hypertrophy causing mild canal narrowing. Glqg-lm-dyce rate bilateral neural foraminal narrowing secondary to disc bulge and facet hypertrophy. L4-L5: Broad disc bulge and facet and ligamentum flavum hypertrophy. There is no significant canal s tenosis. Moderate bilateral neural foraminal narrowing. L5-S1: Disc desiccation and height loss with broad disc bulge and abutment of the traversing nerve ro ots. No significant spinal canal stenosis. Mild bilateral neural foraminal narrowing secondary to d isc and facet disease. LOWER THORACIC: Incompletely imaged. No stenosis seen. SACRUM: Visualized upper sacrum intact. OTHER: No other significant findings. IMPRESSION: 1. No evidence of acute bony abnormality. 2. Multilevel degenerative changes greatest within the lower lumbar spine as detailed above and rosemarie lar to prior. No evidence of high-grade spinal canal stenosis. Mild to moderate neural foraminal na rrowing as above. TECHNICAL DOCUMENTATION: JOB ID: [id number] [employer]- All Rights Reserved Reading location - IP/workstation name: [email or web address]-
== END ==
LOC: RAD 11:04
PROVIDERS: ATTEND Physician Assistant
DX: M51.36 Other intervertebral disc degeneration, lumbar region (principal)
CPT/HCPCS: 72148

== ENCOUNTER → 2019-01-25 | Outpatient (CLI) | payer MEDICAID ==
--- NOTE | 2019-01-25 14:37 | RADIOLOGY REPORT (SQ) ---
EXAM DESCRIPTION: MRI THORACIC SPINE WITHOUT COMPLETED DATE/TIME: 01/25/2019 2:22 pm REASON FOR STUDY: OTHER INTERVERTEBRAL DISC DEGENERATION, THORACIC REGION (M51.34) M51.34 OTHER INT ERVERTEBRAL DISC DEGENERATION, THORACIC CHIO COMPARISON: 03/23/2018 TECHNIQUE: Sagittal and Axial imaging includes T1, T2, STIR and gradient echo sequences. LIMITATIONS: None. FINDINGS: LOCALIZER: No worrisome findings. ALIGNMENT: Mild kyphosis. VERTEBRAE: Intact. BONE MARROW: Normal. No marrow replacement or reactive changes. HARDWARE: None in the spine. CORD: Normal in size and signal intensity. SOFT TISSUES: No soft tissue masses. THORACIC DISCS T1-T12: Bulging disc T3-4 through T9-10. No cord compression. Facet arthropathy multiple levels. IMPRESSION: Spondylosis and facet arthropathy. Minimal narrowing of the spinal canal T3-4 through T 9-10. No evidence of acute compression fracture or acute herniated disc. TECHNICAL DOCUMENTATION: JOB ID: [id number] [employer]- All Rights Reserved Reading location - IP/workstation name: [email or web address]
== END ==
LOC: RAD 13:13
PROVIDERS: ATTEND Physician Assistant
DX: M51.34 Other intervertebral disc degeneration, thoracic region (principal)
CPT/HCPCS: 72146

== ENCOUNTER → 2019-03-12 | Outpatient (CLI) | payer MEDICAID ==
[2019-03-12 15:12] LABS: ABSOLUTE EOSINOPHILS # (AUTO) 0.2 10^3/uL (0.0-0.6); ABSOLUTE LYMPHOCYTES (AUTO) 2.7 10^3/uL (0.5-4.7); ABSOLUTE MONOCYTES (AUTO) 0.3 10^3/uL (0.1-1.4); ABSOLUTE NEUT (AUTO) 2.1 10^3/uL (1.7-8.2); BASOPHILS % (AUTO) 0.6 % (0-2); HEMATOCRIT 40.5 % (36.0-47.0); HEMOGLOBIN 13.8 g/dL (12.0-15.5); MEAN CORPUSCULAR HEMOGLOBIN 30.6 pg (27.0-33.4); MEAN CORPUSCULAR HGB CONC 34.1 g/dL (32.0-36.0); MEAN CORPUSCULAR VOLUME 90 fl (80-97); MONOCYTES % (AUTO) 6.4 % (3-13); PLATELET COUNT 176 10^3/uL (150-450); RED BLOOD COUNT 4.52 10^6/uL (3.72-5.28); RED CELL DISTRIBUTION WIDTH 12.9 % (11.5-14.0); TOTAL CELLS COUNTED % (AUTO) 100 %; WHITE BLOOD COUNT 5.3 10^3/uL (4.0-10.5)
[2019-03-12 15:25] LABS: ALANINE AMINOTRANSFERASE 23 U/L (9-52); ALBUMIN 4.4 g/dL (3.5-5.0); ALKALINE PHOSPHATASE 66 U/L (38-126); ASPARTATE AMINO TRANSFERASE 16 U/L (14-36); BILIRUBIN,DIRECT 0.2 mg/dL (0.0-0.4); BILIRUBIN,TOTAL 0.5 mg/dL (0.2-1.3)
== END ==
LOC: OD 14:18
PROVIDERS: ATTEND Specialist
DX: G35 Multiple sclerosis (principal)
CPT/HCPCS: 36415; 80076; 85025

== ENCOUNTER → 2019-04-18 | Outpatient (CLI) | payer MEDICAID ==
--- NOTE | 2019-04-18 15:39 | WOMENS IMAGING REPORT ---
EXAM DESCRIPTION: 3D SCREENING MAMMO BILAT COMPLETED DATE/TIME: 04/18/2019 11:58 am REASON FOR STUDY: ROUTINE BILATERAL SCREENING;Z12.31 Z12.31 ENCNTR SCREEN MAMMOGRAM FOR MALIGNANT N EOPLASM OF IKE COMPARISON: [id number] EXAM PARAMETERS: Standard craniocaudal and mediolateral oblique views of each breast recorded using digital acquisition and breast tomosynthesis. Read with the assistance of CAD. .[facility] - [employer] Garage Attendant Version 9.2 LIMITATIONS: None. FINDINGS: Findings present which are benign by mammographic criteria. No suspicious masses, calcific ations or architectural distortion. Pertinent benign findings: Fibrocystic change. Calcifications. Benign mammographic findings may include one or more of the following: Smooth masses, popcorn/rim/coa rse calcifications, asymmetries, post-procedure changes, and lesions with long-standing stability. IMPRESSION: Assessment: BENIGN MAMMOGRAPHIC FINDINGS. BIRADS 2 BREAST DENSITY: b. There are scattered areas of fibroglandular density. BIRAD: 2 BENIGN FINDING(S) RECOMMENDATION: ROUTINE SCREENING COMMENT: The patient has been notified of the results by letter per SA requirements. Additional no tification policies are in place for contacting patient with suspicious or incomplete findings. Quality ID #225: The [employer] recommends an annual screening mammogram for women aged 40 years or over. This facility utilizes a reminder system to ensure that all patients receive reminder letters, and/or direct phone calls for appointments. This includes reminders for routine scr eening mammograms, diagnostic mammograms, or other Breast Imaging Interventions when appropriate. Th is patient will be placed in the appropriate reminder system. TECHNICAL DOCUMENTATION: FINDING NUMBER: (1) ASSESSMENT: (1) JOB ID: [id number] [employer]- All Rights Reserved Reading location - IP/workstation name: [email or web address]
== END ==
LOC: WI 11:30
PROVIDERS: ATTEND Internal Medicine Geriatric Medicine
DX: Z12.31 Encounter for screening mammogram for malignant neoplasm of breast (principal)
CPT/HCPCS: 77063; 77067

== ENCOUNTER → 2019-07-13 | Outpatient (CLI) | payer MEDICAID ==
--- NOTE | 2019-07-13 14:07 | RADIOLOGY REPORT (SQ) ---
EXAM DESCRIPTION: MRI HEAD COMBO COMPLETED DATE/TIME: 07/13/2019 1:22 pm REASON FOR STUDY: (G35)MULTIPLE SCLEROSIS G35 MULTIPLE SCLEROSIS COMPARISON: 11/03/2018 TECHNIQUE: Multiplanar imaging includes noncontrasted T1, T2, FLAIR, Diffusion with ADC map and post gadolinium contrast T1 sequences. Images stored on PACS. CONTRAST TYPE AND DOSE: 15 mL Dotarem RENAL FUNCTION: GFR > 60. LIMITATIONS: None. FINDINGS: ANATOMY: No anomalies. Normal vascular flow voids. Pituitary fossa normal. CSF SPACES: Atrophy-induced prominence of CSF spaces and ventricles. CEREBRUM: High-signal intensity lesions scattered throughout the white matter on FLAIR imaging with d istribution, similar to the prior study. No evidence of hemorrhage, extraaxial fluid collection or ac tatitlek ischemic change. No enhancing lesions. POSTERIOR FOSSA: No signal alteration. No hemorrhage. No edema, masses, or mass effect. Internal bud tory canals, cerebello-pontine angles, mastoids normal. No enhancing lesions. ORBITS: No masses. Globes normal. PARANASAL SINUSES: No fluid levels. Mucosa normal. DIFFUSION: Normal. No evidence of recent infarct. OTHER: No other significant finding. IMPRESSION: No significant changes from October 2018.No enhancing lesions. EVIDENCE OF ACUTE STROKE: NO. TECHNICAL DOCUMENTATION: JOB ID: [id number] 2010 [employer]- All Rights Reserved Reading location - IP/workstation name: [facility]
== END ==
LOC: RAD 12:19
PROVIDERS: ATTEND Specialist
DX: G35 Multiple sclerosis (principal)
CPT/HCPCS: 82565; 70553; A9576

== ENCOUNTER 2019-07-31 08:13 | Day surgery (SDC) | payer MEDICAID ==
[2019-07-31 08:52] LABS: INTERNATIONAL RATION (INR) 1.05; PROTHROMBIN TIME 13.7 SEC (11.4-15.4)
[2019-07-31 08:53] LABS: PARTIAL THROMBOPLASTIN TIME 27.9 SEC (23.5-35.8)
--- NOTE | 2019-07-31 11:23 | RADIOLOGY REPORT (SQ) ---
EXAM DESCRIPTION: LUMBAR PUNCTURE; FLUORO/NEEDLE PLACEMENT/SPINE COMPLETED DATE/TIME: 07/31/2019 10:44 am REASON FOR STUDY: MS G35 MULTIPLE SCLEROSIS COMPARISON: Lumbar spine films 04/06/2016 MRI brain 07/13/2019 FLUOROSCOPY TIME: 13 seconds 1 digital fluoroscopic images saved to PACS. TECHNIQUE: Fluoroscopic guided lumbar puncture. LIMITATIONS: None. PROCEDURE: After written consent and assessment were obtained, the patient was brought into the fluo roscopy room and placed prone on the table. The patient's lower back was prepped in a sterile fashio n and an entry site was selected under live fluoroscopic guidance. The entry site was anesthetized wi th 1% lidocaine. A 22 gauge needle was advanced through the skin and into the thecal sac at the right paracentral L2-3 level. After approximately 9 ml was drained, the needle was removed and a sterile bandage was placed of the site. Specimens were sent to the lab for testing. A fluoroscopic spot stuart ge was saved to PACS confirming level access. FINDINGS: Clear CSF, opening pressure 15 cm of water IMPRESSION: Lumbar puncture under fluoroscopy. No immediate complication. COMMENT: Patient medication list reviewed: Yes- Quality ID# [id number]:Eligible professional attests to doc umenting in the medical record they obtained, updated, or reviewed the patient's current medications. . Quality ID 145: Final reports for procedures using fluoroscopy that document radiation exposure nsaim juan antonio, or exposure time and number of fluorographic images (if radiation exposure indices are not avail able) TECHNICAL DOCUMENTATION: JOB ID: [id number] [employer]- All Rights Reserved Reading location - IP/workstation name: [email or web address]
--- NOTE | 2019-07-31 11:23 | RADIOLOGY REPORT (SQ) ---
EXAM DESCRIPTION: LUMBAR PUNCTURE; FLUORO/NEEDLE PLACEMENT/SPINE COMPLETED DATE/TIME: 07/31/2019 10:44 am REASON FOR STUDY: MS G35 MULTIPLE SCLEROSIS COMPARISON: Lumbar spine films 04/06/2016 MRI brain 07/13/2019 FLUOROSCOPY TIME: 13 seconds 1 digital fluoroscopic images saved to PACS. TECHNIQUE: Fluoroscopic guided lumbar puncture. LIMITATIONS: None. PROCEDURE: After written consent and assessment were obtained, the patient was brought into the fluo roscopy room and placed prone on the table. The patient's lower back was prepped in a sterile fashio n and an entry site was selected under live fluoroscopic guidance. The entry site was anesthetized wi th 1% lidocaine. A 22 gauge needle was advanced through the skin and into the thecal sac at the right paracentral L2-3 level. After approximately 9 ml was drained, the needle was removed and a sterile bandage was placed of the site. Specimens were sent to the lab for testing. A fluoroscopic spot stuart ge was saved to PACS confirming level access. FINDINGS: Clear CSF, opening pressure 15 cm of water IMPRESSION: Lumbar puncture under fluoroscopy. No immediate complication. COMMENT: Patient medication list reviewed: Yes- Quality ID# [id number]:Eligible professional attests to doc umenting in the medical record they obtained, updated, or reviewed the patient's current medications. . Quality ID 145: Final reports for procedures using fluoroscopy that document radiation exposure nasim juan antonio, or exposure time and number of fluorographic images (if radiation exposure indices are not avail able) TECHNICAL DOCUMENTATION: JOB ID: [id number] [employer]- All Rights Reserved Reading location - IP/workstation name: [email or web address]
[2019-07-31 11:24] LABS: CSF TUBE NUMBER 3
[2019-07-31 11:25] LABS: APPEARANCE ALL TUBES CLEAR; COLOR ALL TUBES COLORLESS; CSF TOTAL VOLUME 9.3 CC; VOLUME TUBE 3 2.2 CC; VOLUME TUBE 4 3.1 CC
[2019-07-31 11:26] LABS: WHITE BLOOD CELL,CSF 1 /uL (0-5)
[2019-07-31 11:27] LABS: RED BLOOD CELL,CSF 1 /uL (0-10)
[2019-07-31 11:28] LABS: GLUCOSE,CSF 93 mg/dL (40-70); PROTEIN,CSF 76 mg/dL (12-60)
[2019-07-31 13:30] VITALS: BP 127/65
[2019-08-02 14:37] LABS: ALBUMIN CSF 40 mg/dL (11-48); ALBUMIN SERUM 4.1 g/dL (3.6-4.8); CSF IGG INDEX 0.5 (0.0-0.7); IGG SYNTHESIS RATE CSF -1.9 mg/day (-9.9 TO +3); IGG/ALBUMIN RATIO CSF 0.09 (0.00-0.25); IMMUNOGLOBULIN G CSF 3.7 mg/dL (0.0-8.6); IMMUNOGLOBULIN G SERUM 812 mg/dL (700-1600)
[2019-08-02 16:00] LABS: CSF/SERUM ALBUMIN INDEX 10 (0-8)
== END 2019-07-31 13:40 | disposition home or self-care (01) ==
LOC: RAD 08:13
PROVIDERS: ATTEND Specialist
DX: G35 Multiple sclerosis (principal); Z79.84 Long term (current) use of oral hypoglycemic drugs; Z79.899 Other long term (current) drug therapy
CPT/HCPCS: 36415; 62270; 77003; 82784; 82945; 82962; 83916; 84157; 85610; 85730; 87070; 87205; 89050

== ENCOUNTER → 2019-09-29 | Outpatient (CLI) | payer MEDICAID ==
[2019-09-29 12:55] LABS: ABSOLUTE EOSINOPHILS # (AUTO) 0.1 10^3/uL (0.0-0.6); ABSOLUTE LYMPHOCYTES (AUTO) 2.3 10^3/uL (0.5-4.7); ABSOLUTE MONOCYTES (AUTO) 0.3 10^3/uL (0.1-1.4); BASOPHILS % (AUTO) 0.7 % (0-2); EOSINOPHILS % (AUTO) 2.2 % (0-6); HEMATOCRIT 42.4 % (36.0-47.0); HEMOGLOBIN 14.2 g/dL (12.0-15.5); MEAN CORPUSCULAR HEMOGLOBIN 30.1 pg (27.0-33.4); MEAN CORPUSCULAR HGB CONC 33.4 g/dL (32.0-36.0); MEAN CORPUSCULAR VOLUME 90 fl (80-97); MONOCYTES % (AUTO) 6.8 % (3-13); PLATELET COUNT 187 10^3/uL (150-450); RED CELL DISTRIBUTION WIDTH 13.5 % (11.5-14.0); SEGMENTED NEUTROPHILS % (AUTO) 42.3 % (42-78); TOTAL CELLS COUNTED % (AUTO) 100 %; WHITE BLOOD COUNT 4.8 10^3/uL (4.0-10.5)
[2019-09-29 13:29] LABS: ALBUMIN 4.5 g/dL (3.5-5.0); ALKALINE PHOSPHATASE 68 U/L (38-126); ASPARTATE AMINO TRANSFERASE 23 U/L (14-36); BILIRUBIN,DIRECT 0.2 mg/dL (0.0-0.4); BILIRUBIN,TOTAL 0.6 mg/dL (0.2-1.3); TOTAL PROTEIN 6.9 g/dL (6.3-8.2)
== END ==
LOC: OD 11:26
PROVIDERS: ATTEND Specialist
DX: G35 Multiple sclerosis (principal)
CPT/HCPCS: 36415; 80076; 85025

== ENCOUNTER 2019-11-29 08:08 | Emergency (ER) | payer MEDICAID ==
[2019-11-29] MEDS ORDERED: ACETAMINOPHEN 325 MG TABLET PO ONE (09:01)
[2019-11-29] MEDS ORDERED: BENZONATATE 100 MG CAPSULE PO ONE (09:01)
[2019-11-29] MEDS ORDERED: PREDNISONE 20 MG TABLET PO ONE (09:01)
[2019-11-29 09:29] LABS: ABSOLUTE LYMPHOCYTES (AUTO) 1.6 10^3/uL (0.5-4.7); ABSOLUTE MONOCYTES (AUTO) 0.6 10^3/uL (0.1-1.4); ABSOLUTE NEUT (AUTO) 9.6 10^3/uL (1.7-8.2); BASOPHILS % (AUTO) 0.3 % (0-2); EOSINOPHILS % (AUTO) 0.1 % (0-6); HEMATOCRIT 42.2 % (36.0-47.0); HEMOGLOBIN 14.3 g/dL (12.0-15.5); LYMPHOCYTES % (AUTO) 13.5 % (13-45); MEAN CORPUSCULAR HEMOGLOBIN 30.3 pg (27.0-33.4); MEAN CORPUSCULAR HGB CONC 33.8 g/dL (32.0-36.0); MEAN CORPUSCULAR VOLUME 90 fl (80-97); MONOCYTES % (AUTO) 5.3 % (3-13); PLATELET COUNT 170 10^3/uL (150-450); RED BLOOD COUNT 4.71 10^6/uL (3.72-5.28); RED CELL DISTRIBUTION WIDTH 13.9 % (11.5-14.0); SEGMENTED NEUTROPHILS % (AUTO) 80.8 % (42-78); TOTAL CELLS COUNTED % (AUTO) 100 %; WHITE BLOOD COUNT 11.9 10^3/uL (4.0-10.5)
--- NOTE | 2019-11-29 09:37 | RADIOLOGY REPORT (SQ) ---
EXAM DESCRIPTION: CHEST 2 VIEWS COMPLETED DATE/TIME: 11/29/2019 9:27 am REASON FOR STUDY: Influenza-like illness with fever and cough COMPARISON: 09/06/2016 EXAM PARAMETERS: NUMBER OF VIEWS: two views TECHNIQUE: Digital Frontal and Lateral radiographic views of the chest acquired. RADIATION DOSE: NA LIMITATIONS: none FINDINGS: LUNGS AND PLEURA: Subcentimeter calcified granuloma right upper lobe. No evidence of pulm onary edema or pneumonia. MEDIASTINUM AND HILAR STRUCTURES: No masses or contour abnormalities. HEART AND VASCULAR STRUCTURES: Heart normal size. No evidence for failure. BONES: Multiple old right rib fractures. HARDWARE: None in the chest. OTHER: No other significant finding. IMPRESSION: NO ACUTE RADIOGRAPHIC FINDING IN THE CHEST. TECHNICAL DOCUMENTATION: JOB ID: [id number] [employer]- All Rights Reserved Reading location - IP/workstation name: [email or web address]
--- NOTE | 2019-11-29 09:44 | ER Document Report ---
Entered by SERENITY VERAS SCRIBE 11/29/19 0900 Acting as scribe for:GLYNN LOPEZ MD ED General - General Chief Complaint: Cold Symptoms Stated Complaint: SORE THROAT/CHEST CONGESTION Time Seen by Provider: 11/29/19 08:49 Primary Care Provider: MICHAELA CARRIZALES MD [Primary Care Provider] - Follow up as needed Mode of Arrival: Ambulatory Information source: Patient Notes: This 64 year old female patient with a history of bronchitis presents to the ED today with complaints of flu-like symptoms for the past x4 days. Patient reports clear nasal discharge, chills, chest tightness, fever, cough, and wheezing that is improved with her inhaler. Patient states that she took Mucinex with no relief. Patient notes that she took extra strength pain reliever for her fever last night. Patient states that these symptoms feel similar to when she had a sinus infection on 11/01/19. Patient notes that she received a flu shot in August 2019. Patient takes oxycodone 10 mg qid regularly for pain management. TRAVEL OUTSIDE OF THE [place] IN LAST 30 DAYS: No - Related Data Allergies/Adverse Reactions: No Known Allergies Allergy (Verified 11/29/19 08:43) Past Medical History - General Information source: Patient - Social History Smoking Status: Never Smoker Cigarette use (# per day): No Chew tobacco use (# tins/day): No Smoking Education Provided: No Frequency of alcohol use: None Drug Abuse: None Family History: Reviewed & Not Pertinent Patient has suicidal ideation: No Patient has homicidal ideation: No - Past Medical History Cardiac Medical History: Reports: Hx Hypertension Pulmonary Medical History: Reports: Hx Bronchitis Endocrine Medical History: Reports: Hx Diabetes Mellitus Type 2 Renal/ Medical History: Reports: Hx Ectopic , Hx Ovarian Cysts GI Medical History: Reports: Hx Gastroesophageal Reflux Disease, Hx Hepatitis - C, Hx Hiatal Hernia Musculoskeletal Medical History: Reports Hx Arthritis, Reports Hx Multiple Sclerosis Infectious Medical History: Reports: Hx Hepatitis - C Past Surgical History: Reports: Hx Gynecologic Surgery - ectopic , fibroid tumor removed, ovarian cyst removed, Hx Hysterectomy, Hx Orthopedic Surgery - bunionectomy - Immunizations Immunizations up to date: Yes Hx Diphtheria, Pertussis, Tetanus Vaccination: Yes Hx Pneumococcal Vaccination: 11/28/00 Review of Systems - Review of Systems Constitutional: See HPI, Chills. denies: Fever EENT: See HPI, Nose discharge, Throat pain Cardiovascular: No symptoms reported, Chest pain - reproducible Respiratory: See HPI, Cough, Wheezing. denies: Sputum Gastrointestinal: No symptoms reported Genitourinary: No symptoms reported Female Genitourinary: No symptoms reported Musculoskeletal: No symptoms reported Skin: No symptoms reported Hematologic/Lymphatic: No symptoms reported Neurological/Psychological: No symptoms reported -: Yes All other systems reviewed and negative Physical Exam - Vital signs Vitals: Temp Pulse Resp BP Pulse Ox 99.3 F 96 16 126/77 H 96 11/29/19 08:22 11/29/19 08:22 11/29/19 08:22 11/29/19 08:22 11/29/19 08:22 - General General appearance: Alert - HEENT Head: Normocephalic, Atraumatic Eyes: Normal Pupils: PERRL Tympanic membrane: Normal Sinus: Other - Congestion Nasal: Clear rhinorrhea Pharynx: Normal - Respiratory Respiratory status: No respiratory distress Chest status: Tender - Anterior chest wall tenderness with palpation Breath sounds: Nonproductive cough - Dry cough Chest palpation: Normal - Cardiovascular Rhythm: Regular Heart sounds: Normal auscultation Murmur: No - Abdominal Inspection: Normal Distension: No distension Bowel sounds: Normal Tenderness: Nontender Organomegaly: No organomegaly - Back Back: Normal, Nontender - Extremities General upper extremity: Normal inspection General lower extremity: Normal inspection - Neurological Neuro grossly intact: Yes - Psychological Associated symptoms: Normal affect, Normal mood - Skin Skin Temperature: Warm Skin Moisture: Dry Skin Color: Normal Course - Re-evaluation Re-evalutation: 11/29/19 10:43 Patient's chest x-ray was unremarkable. Influenza test was negative. The blood sugar was slightly elevated and there was glucosuria with concentrated urine. Patient reports that she did not take her Prandin this morning. I have explained her that is very important she take her diabetes medicine, as the pre dnisone will tend to increase her blood sugars. She also needs to drink more water than she has been drinking despite feeling that she has been drinking plenty so far. - Vital Signs Vital signs: Temp Pulse Resp BP Pulse Ox 99.3 F 96 16 126/77 H 11/29/19 08:22 11/29/19 08:22 11/29/19 08:22 11/29/19 08:22 11/29/19 08:22 - Laboratory Result Diagrams: 11/29/19 09:20 11/29/19 09:20 Laboratory results interpreted by me: 11/29/19 11/29/19 11/29/19 09:20 09:20 09:38 WBC 11.9 H Absolute Neuts (auto) 9.6 H Seg Neutrophils % 80.8 H Glucose 258 H Urine Protein 30 H Urine Glucose (UA) >=500 H Urine Ketones 20 H - Diagnostic Test Radiology reviewed: Image reviewed, Reports reviewed - Chest x-ray does not show an acute cardiopulmonary process. Discharge - Discharge Clinical Impression: Viral upper respiratory tract infection with cough Condition: Stable Disposition: HOME, SELF-CARE Additional Instructions: Upper Respiratory Illness: You have a viral infection of the respiratory passages -- a "cold." This common infection causes nasal congestion, drainage, and often sore throat and cough. It is caused by a virus and is highly contagious. The disease usually lasts a week or more, though the worst symptoms are usually over in 3 or 4 days. There is no "cure" for the viral infection -- it must run its course. If there is a complication, such as bacterial infection in the nose, sinuses, middle ear, or bronchial tubes, antibiotics may be required, but antibiotics won't affect the virus. If you smoke, you should STOP!! Drink plenty of fluids. A humidifier may help. An expectorant medication or decongestant may make you more comfortable. Use acetaminophen or ibuprofen for fever or aches. See the doctor if fever persists over two or three days, if there is any significant worsening of your symptoms, or if you simply fail to improve as expected. Start taking the prednisone as prescribed tomorrow. You were given today's dose here in the emergency room. Be sure to drink plenty of fluids and get plenty of rest. Rest your voice is much as possible. Be sure to take all of your regular medications including your diabetes medicine. Try adding Delsym DM to help control your cough in addition to the prednisone and Tessalon Perles you will be taking. Follow-up with your primary care provider if not improving. RETURN TO THE EMERGENCY ROOM IF ANY NEW OR WORSENING SYMPTOMS. Prescriptions: Prednisone 10 mg PO TID #15 tablet Benzonatate [Tessalon Perles 100 mg Capsule] 100 mg PO ASDIR PRN #30 capsule PRN Reason: Referrals: MCKINLEY CONNOR MD [ACTIVE STAFF] - Follow up as needed Scribe Attestation: 11/29/19 09:20 I personally performed the services described in the documentation, reviewed and edited the documentation which was dictated to the scribe in my presence, and it accurately records my words and actions. I personally performed the services described in the documentation, reviewed and edited the documentation which was dictated to the scribe in my presence, and it accurately records my words and actions.
[2019-11-29 09:50] LABS: ALBUMIN 4.5 g/dL (3.5-5.0); ALKALINE PHOSPHATASE 75 U/L (38-126); ANION GAP 12 (5-19); ASPARTATE AMINO TRANSFERASE 21 U/L (14-36); BILIRUBIN,DIRECT 0.2 mg/dL (0.0-0.4); BILIRUBIN,TOTAL 0.9 mg/dL (0.2-1.3); BLOOD UREA NITROGEN 13 mg/dL (7-20); CALCIUM 9.7 mg/dL (8.4-10.2); CARBON DIOXIDE 26 mmol/L (22-30); CHLORIDE 100 mmol/L (98-107); CREATINE KINASE 76 U/L (30-135); GLUCOSE 258 mg/dL (75-110); POTASSIUM 3.6 mmol/L (3.6-5.0); TOTAL PROTEIN 7.3 g/dL (6.3-8.2)
[2019-11-29 10:01] LABS: APPEARANCE,URINE CLEAR; BILIRUBIN,URINE NEGATIVE (NEGATIVE); COLOR,URINE YELLOW; GLUCOSE, URINE >=500 mg/dL (NEGATIVE); KETONES,URINE 20 mg/dL (NEGATIVE); LEUKOCYTE ESTERASE,URINE NEGATIVE (NEGATIVE); NITRITE,URINE NEGATIVE (NEGATIVE); PROTEIN,URINE 30 mg/dL (NEGATIVE); UROBILINOGEN,URINE NEGATIVE mg/dL (<2.0)
[2019-11-29 10:15] LABS: A TYPE INFLUENZA AG NEGATIVE (NEGATIVE); B INFLUENZA AG NEGATIVE (NEGATIVE)
[2019-11-29 11:05] VITALS: BP 117/65
== END 2019-11-29 11:04 | disposition home or self-care (01) ==
LOC: ER 08:08
DX: J06.9 Acute upper respiratory infection, unspecified (principal); B97.89 Other viral agents as the cause of diseases classified elsewhere; R05 Cough; R09.89 Other specified symptoms and signs involving the circulatory and respiratory systems; R07.89 Other chest pain; R06.2 Wheezing; R68.83 Chills (without fever); I10 Essential (primary) hypertension; E11.65 Type 2 diabetes mellitus with hyperglycemia; Z79.84 Long term (current) use of oral hypoglycemic drugs; Z79.891 Long term (current) use of opiate analgesic
CPT/HCPCS: 99285; 36415; 82550; 85025; 80053; 81001; 87804; 71046; J3490 ×2; J7512

== ENCOUNTER 2019-12-03 10:03 | Emergency (ER) | payer MEDICAID ==
--- NOTE | 2019-12-03 10:28 | ER Document Report ---
ED General - General Chief Complaint: Congestion Stated Complaint: COUGH,CONGESTION Primary Care Provider: MICHAELA CARRIZALES MD [NO LOCAL MD] - Follow up as needed TRAVEL OUTSIDE OF THE [place] IN LAST 30 DAYS: No - HPI Notes: PCP Augusto Marizaf history of MS on Horizant for nerve pain, presents for continued nasal congestion cough she feels like she cannot expectorate some the deeper phlegm. Denies any fever chills sweats no vomiting. She was seen in our emergency department on Tuesday and was prescribed Tessalon Perles and prednisone for an upper respiratory viral illness. She says she has a history of recurrent bronchitis but is not on steroids or antibiotics usually. No other recent antibiotics. She also on an oral glycemic medicine for random for diabetes, antihypertensive, Zyrtec, she is has an inhaler usually that she is been using it helps with cough minimally. She says prednisone really has not helped. She does have some chills but no actual fevers or sweats she is noted. No hemo ptysis only once has had a very small amount of green phlegm,. No chest pain or passing out near passing out. No sick contacts. No real dyspnea on exertion or PND. - Related Data Allergies/Adverse Reactions: No Known Allergies Allergy (Verified 12/07/19 09:49) Past Medical History - Social History Smoking Status: Unknown if Ever Smoked Family History: Reviewed & Not Pertinent - Past Medical History Cardiac Medical History: Reports: Hx Hypertension Denies: Hx Coronary Artery Disease, Hx Heart Attack Pulmonary Medical History: Reports: Hx Bronchitis Denies: Hx Asthma, Hx COPD, Hx Pneumonia Neurological Medical History: Denies: Hx Cerebrovascular Accident, Hx Seizures Endocrine Medical History: Reports: Hx Diabetes Mellitus Type 2 Renal/ Medical History: Reports: Hx Ectopic , Hx Ovarian Cysts. Eliazar es: Hx Peritoneal Dialysis GI Medical History: Reports: Hx Gastroesophageal Reflux Disease, Hx Hepatitis - C, Hx Hiatal Hernia Musculoskeletal Medical History: Reports Hx Arthritis, Reports Hx Multiple Sclerosis Infectious Medical History: Reports: Hx Hepatitis - C Past Surgical History: Reports: Hx Gynecologic Surgery - ectopic , fibroid tumor removed, ovarian cyst removed, Hx Hysterectomy, Hx Orthopedic Surgery - bunionectomy. Denies: Hx Pacemaker - Immunizations Immunizations up to date: Yes Hx Diphtheria, Pertussis, Tetanus Vaccination: Yes Hx Pneumococcal Vaccination: 11/28/00 Review of Systems - Review of Systems Constitutional: See HPI EENT: See HPI Cardiovascular: No symptoms reported Respiratory: See HPI, Cough. denies: Hurts to breathe, Hemoptysis, Short of breath, Stridor, Wheezing Gastrointestinal: No symptoms reported Genitourinary: No symptoms reported Female Genitourinary: No symptoms reported Musculoskeletal: No symptoms reported Skin: No symptoms reported Hematologic/Lymphatic: No symptoms reported Neurological/Psychological: No symptoms reported Physical Exam - Vital signs Vitals: Temp Pulse Resp BP Pulse Ox 98.6 F 80 18 144/87 H 97 12/03/19 10:06 12/03/19 10:06 12/03/19 10:06 12/03/19 10:06 12/03/19 10:06 Interpretation: Normal - General General appearance: Appears well - nontoxic appearing In distress: None - HEENT Head: Normocephalic, Atraumatic Eyes: No: Pale conjunctiva, Periorbital ecchymosis, Periorbital edema, Scleral icterus, Tears Conjunctiva: No: Injected Extraocular movements intact: Yes Eyelashes: Normal Pupils: PERRL External canal: Normal Tympanic membrane: Normal Nasal: Swelling - anterior turbinates apopear somewhat irritated, symmetric +b/l air flow via both nares.. No: Gi deformity, Ecchymosis, Epistaxis, Clear rhinorrhea Mouth/Lips: Normal. No: Lesions Mucous membranes: Dry Pharynx: Erythema - mild posterior pharynx erythema w/o evidence suppurative collection/space occupying process. No: Blood in hypopharynx, Exudate, Peritonsillar abscess, Tonsillar hypertrophy, Uvular edema, Potential airway comprom. Neck: Normal, Supple. No: Lymphadenopathy, Meningismus, Neck mass, Shotty nodes , Subcutaneous emphysema, Thyromegally - Respiratory Respiratory status: No respiratory distress Chest status: Nontender Breath sounds: Normal Chest palpation: Normal - Cardiovascular Rhythm: Regular Heart sounds: Normal auscultation Murmur: No - Abdominal Inspection: Normal Distension: No distension Bowel sounds: Normal Tenderness: Nontender Organomegaly: No organomegaly - Back Back: Normal, Nontender - Extremities General upper extremity: Normal inspection, Nontender, Normal color, Normal ROM, Normal temperature General lower extremity: Normal inspection, Nontender, Normal color, Normal ROM, Normal temperature, Normal weight bearing. No: Vijay's sign - Neurological Neuro grossly intact: Yes Cognition: Normal Orientation: AAOx4 Arimo Coma Scale Eye Opening: Spontaneous Arimo Coma Scale Verbal: Oriented Joselo Coma Scale Motor: Obeys Commands Arimo Coma Scale Total: 15 Speech: Normal Motor strength normal: LUE, RUE, LLE, RLE Sensory: Normal - Psychological Associated symptoms: Normal affect, Normal mood - Skin Skin Temperature: Warm Skin Moisture: Dry Skin Color: Normal Course - Re-evaluation Re-evalutation: 12/03/19 13:44 Patient's vital signs continue to be within normal limits and her temperature remained within normal limits. She feels like the breathing treatment helped some she does have Ventolin inhaler at home. She can continue to use for cough. Her white count is up slightly from the other day but she is been on prednisone. Her other labs including kidney function look within normal limits. Did not do a urine today since she is not had any symptoms. We discussed symptom control with [id number] agents and making sure that she does not take more than what I am prescribing robitussin for cough since hadn't responded to tessalon perles guaifenesin, ibuprofen or Tylenol as needed. Phenylephrine can help dry her up I said but it does increase blood pressure so please check this at home make sure is not too high before trying to take this. She does not have any known heart disease she says. She will return for shortness of breath worsening trouble breathing any trouble swallowing or severe throat pain or other concerns. 12/14/19 21:16 - Vital Signs Vital signs: Temp Pulse Resp BP Pulse Ox 98.0 F 73 16 170/71 H 97 12/03/19 13:17 12/03/19 13:17 12/03/19 13:17 12/03/19 13:17 12/03/19 13:17 - Laboratory Result Diagrams: 12/03/19 12:20 12/03/19 12:20 Laboratory results interpreted by me: 12/03/19 12/03/19 12:20 12:20 WBC 13.5 H Abs Neuts (Manual) 10.1 H Glucose 230 H Alkaline Phosphatase 157 H Discharge - Discharge Clinical Impression: Upper respiratory infection Qualifiers: URI type: unspecified viral URI Qualified Code(s): J06.9 - Acute upper respiratory infection, unspecified Condition: Fair Disposition: HOME, SELF-CARE Additional Instructions: Today in the emergency department you were negative for flu your x-ray does not look like there is any pneumonias Her extra fluid on the lung. You appear well-hydrated today and your vitals are within normal limits I have prescribed tviu-vnz-lzmezam medications that assist with symptoms. Since the Tessalon Perles are not helping you can use dextromethorphan 20 mg up to every 6 hours as needed. Mucinex or guaifenesin extended release 1200 mg every 12 hours as needed to help get up some of your deeper thick phlegm, and phenylephrine which is also in the combination pill with the Mucinex can help dry you up more. You can continue to take your Claritin or Zyrtec. But if you were taking any other pzfo-ohx-kdepneb cold medicines please ensure that you are not taking more than 3000 mg of acetaminophen in a single day as many have this added to their combination. Also is on as you were getting a cough suppressant dextromethorphan at least 20 mg at a time, the Mucinex which will help you get the phlegm out, and then phenylephrine I think this will help your specific symptoms. But just ensure that you are not taking anything else that already has these things in it so you can know that you are not taking too much just take the above as directed. And then if you get ibuprofen 600 mg every 6 hours as needed for any headache or inflammation or you can use 650 mg of acetaminophen every 6 hours as needed for any headache or aches as well. Again just ensure that you are not doubling up on any of these components. Otherwise please follow-up with your regular doctor. Watch for any fevers over 100.4 any trouble breathing any vomiting fevers chills sweats. This I believe is a viral upper respiratory cold and some of these are lasting longer than a few weeks. But still just watch for those above signs to ensure you are not worsening also look for any trouble swallowing or breathing or noisy breathing. Prescriptions: Dextromethorphan HBr [Tussin Cough] 20 mg PO Q6HP PRN 5 Days #1 bot PRN Reason: Guaifenesin/Phenylephrine HCl [Guaifen-Phenyl 1200/25 Mg Tab] 1 each PO Q12HP PRN #6 tab.sr.12h PRN Reason: Referrals: MICHAELA CARRIZALES MD [NO LOCAL MD] - Follow up as needed
--- NOTE | 2019-12-03 11:42 | RADIOLOGY REPORT (SQ) ---
EXAM DESCRIPTION: CHEST 2 VIEWS COMPLETED DATE/TIME: 12/03/2019 10:59 am REASON FOR STUDY: Cough COMPARISON: 11/29/2019 EXAM PARAMETERS: NUMBER OF VIEWS: two views TECHNIQUE: Digital Frontal and Lateral radiographic views of the chest acquired. RADIATION DOSE: NA LIMITATIONS: none FINDINGS: LUNGS AND PLEURA: No opacities, masses or pneumothorax. No pleural effusion. Stable calci fied right upper lobe granuloma. MEDIASTINUM AND HILAR STRUCTURES: No masses or contour abnormalities. HEART AND VASCULAR STRUCTURES: Heart normal size. No evidence for failure. BONES: No acute findings. HARDWARE: None in the chest. Cervical fusion hardware. OTHER: No other significant finding. IMPRESSION: No focal consolidation or other acute intrathoracic process. TECHNICAL DOCUMENTATION: JOB ID: [id number] [employer]- All Rights Reserved Reading location - IP/workstation name: [email or web address]
[2019-12-03] MEDS ORDERED: IPRATROPIUM/ALBUTEROL 0.5-2.5 MG/3 ML AMPUL NEB ONE (11:59)
[2019-12-03 12:34] LABS: A TYPE INFLUENZA AG NEGATIVE (NEGATIVE); B INFLUENZA AG NEGATIVE (NEGATIVE)
[2019-12-03 12:52] LABS: HEMATOCRIT 41.4 % (36.0-47.0); HEMOGLOBIN 13.7 g/dL (12.0-15.5); MEAN CORPUSCULAR HEMOGLOBIN 29.6 pg (27.0-33.4); MEAN CORPUSCULAR HGB CONC 33.2 g/dL (32.0-36.0); MEAN CORPUSCULAR VOLUME 89 fl (80-97); PLATELET COUNT 225 10^3/uL (150-450); RED BLOOD COUNT 4.64 10^6/uL (3.72-5.28); RED CELL DISTRIBUTION WIDTH 13.3 % (11.5-14.0); WHITE BLOOD COUNT 13.5 10^3/uL (4.0-10.5)
[2019-12-03 13:03] LABS: ALBUMIN 4.2 g/dL (3.5-5.0); ALKALINE PHOSPHATASE 157 U/L (38-126); ANION GAP 13 (5-19); ASPARTATE AMINO TRANSFERASE 19 U/L (14-36); BILIRUBIN,DIRECT 0.2 mg/dL (0.0-0.4); BILIRUBIN,TOTAL 0.3 mg/dL (0.2-1.3); BLOOD UREA NITROGEN 17 mg/dL (7-20); CALCIUM 8.6 mg/dL (8.4-10.2); CARBON DIOXIDE 27 mmol/L (22-30); CHLORIDE 98 mmol/L (98-107); GLUCOSE 230 mg/dL (75-110); POTASSIUM 3.9 mmol/L (3.6-5.0); TOTAL PROTEIN 6.7 g/dL (6.3-8.2)
[2019-12-03 13:10] LABS: ABSOLUTE LYMPHOCYTES# (MANUAL) 2.7 10^3/uL (0.5-4.7); ABSOLUTE MONOCYTES # (MANUAL) 0.5 10^3/uL (0.1-1.4); BASOPHILS % (MANUAL) 0 % (0-2); EOSINOPHILS % (MANUAL) 1 % (0-6); LYMPHOCYTES % (MANUAL) 15 % (13-45); METAMYELOCYTES % (MANUAL) 1 % (0-1); MONOCYTES % (MANUAL) 4 % (3-13); SEGMENTED NEUTROPHILS % (MAN) 74 % (42-78); TOTAL CELLS COUNTED 100
[2019-12-03 13:11] LABS: PLATELET COMMENT ADEQUATE; RBC MORPHOLOGY COMMENT NORMO-CYTIC/CHROMIC
[2019-12-03 13:18] VITALS: BP 170/71
== END 2019-12-03 13:19 | disposition home or self-care (01) ==
LOC: ER 10:03
DX: J06.9 Acute upper respiratory infection, unspecified (principal); B97.89 Other viral agents as the cause of diseases classified elsewhere; R09.81 Nasal congestion; R05 Cough; R68.83 Chills (without fever); I10 Essential (primary) hypertension; G35 Multiple sclerosis; E11.9 Type 2 diabetes mellitus without complications; Z79.899 Other long term (current) drug therapy; Z79.84 Long term (current) use of oral hypoglycemic drugs
CPT/HCPCS: 94640; 99283; 36415; 85025; 86308; 80053; 87804; 71046; J7620

== ENCOUNTER 2019-12-07 09:34 | Emergency (ER) | payer MEDICAID ==
[2019-12-07 09:39] VITALS: BP 132/77
--- NOTE | 2019-12-07 10:00 | ER Document Report ---
HPI - HPI Time Seen by Provider: 12/07/19 09:50 Pain Level: 1 Notes: Patient is a 64-year-old female with a history of hypertension and type 2 diabetes who presents for the third time in the past week complaining of dry cough, nasal congestion/discharge. Patient states that she began having bilateral eye redness and purulence with matting that began over the past couple days as well. Patient states that she has been taking the medicines as prescribed which included basic cold medicine prescriptions as well as steroids. Denies drug allergies. She is otherwise able to eat and drink without difficulty. She is urinating normally. Denies any headache, fever, neck pain, chest pain, palpitations, syncope, shortness of breath, wheeze, dyspnea, abdominal pain, nausea/vomiting/diarrhea, urinary retention, dysuria, hematuria, or rash. - ROS Systems Reviewed and Negative: Yes All other systems reviewed and negative - REPRODUCTIVE Reproductive: DENIES: : Past Medical History - Social History Smoking Status: Never Smoker Family History: Reviewed & Not Pertinent Patient has suicidal ideation: No Patient has homicidal ideation: No - Past Medical History Cardiac Medical History: Reports: Hx Hypercholesterolemia, Hx Hypertension Denies: Hx Coronary Artery Disease, Hx Heart Attack Pulmonary Medical History: Reports: Hx Bronchitis Denies: Hx Asthma, Hx COPD, Hx Pneumonia Neurological Medical History: Denies: Hx Cerebrovascular Accident, Hx Seizures Endocrine Medical History: Reports: Hx Diabetes Mellitus Type 2 Renal/ Medical History: Reports: Hx Ectopic , Hx Ovarian Cysts. Denies: Hx Peritoneal Dialysis GI Medical History: Reports: Hx Gastroesophageal Reflux Disease, Hx Hepatitis - C, Hx Hiatal Hernia Musculoskeletal Medical History: Reports Hx Arthritis, Reports Hx Multiple Sclerosis Infectious Medical History: Reports: Hx Hepatitis - C Past Surgical History: Reports: Hx Gynecologic Surgery - ectopic , fibroid tumor removed, ovarian cyst removed, Hx Hysterectomy, Hx Orthopedic Surgery - bunionectomy. Denies: Hx Pacemaker - Immunizations Immunizations up to date: Yes Hx Diphtheria, Pertussis, Tetanus Vaccination: Yes Hx Pneumococcal Vaccination: 11/28/00 Vertical Provider Document - CONSTITUTIONAL Agree With Documented VS: Yes Notes: PHYSICAL EXAMINATION: GENERAL: Well-appearing, well-nourished and in no acute distress. A&Ox4. Answers questions appropriately. Moves comfortably w/o notable distress HEAD: Atraumatic, normocephalic. EYES: Pupils equal round and reactive to light, extraocular movements intact, sclera anicteric, conjunctiva injected bilaterally with some purulence and matting noted. ENT: EAC clear b/l. TM's intact b/l without erythema, fluid, or perforation. Nares patent and with clear discharge. oropharynx no erythema without exudates. No tonsilar hypertrophy without erythema or exudate. No palatine shift. Uvula midline. No tongue protrusion. No drooling, hoarseness, or airway compromise. Moist mucous membranes. No sinus tenderness. NECK: Normal range of motion, supple without lymphadenopathy. No rigidity/meningismus. LUNGS: Breath sounds clear to auscultation bilaterally and equal. No wheezes rales or rhonchi. No retractions HEART: Regular rate and rhythm without murmurs, rubs, gallops. ABDOMEN: Soft, nontender, nondistended abdomen. No guarding, no rebound. Normal bowel sounds present. No CVA tenderness bilaterally. NEUROLOGICAL: Normal speech, normal gait. PSYCH: Normal mood, normal affect. SKIN: Warm, Dry, normal turgor, no rashes or lesions noted. - INFECTION CONTROL TRAVEL OUTSIDE OF THE [place] IN LAST 30 DAYS: No Course - Re-evaluation Re-evalutation: 12/07/19 10:03 Patient is an afebrile, well-hydrated, 64-year-old female who presents to the ED with a cough and bilateral conjunctivitis. Vitals are acceptable. PE is otherwise unremarkable. No labs or imaging warranted at this time based on H&P. Patient has no significant cardiopulmonary or immunocompromised medical conditions. Patient's lungs are clear to auscultation bilaterally without tachycardia, hypoxia, or tachypnea. Patient is tolerating p.o. without any difficulties. Patient had an unremarkable work-up over past 2 visits. Low suspicion for any meningitis, sepsis, peritonsillar/pharyngeal abscess, respiratory compromise, severe dehydration, or other emergent systemic condition at this time. Patient is aware this condition can change from initial presentation and she needs to monitor symptoms closely. Because of her developing symptoms and diabetes I will cover her with Zithromax as well as Polytrim. Conservative measures otherwise for symptoms. Recheck with your PCM in 2-3 days. Return to the ED with any worsening/concerning symptoms otherwise as reviewed in discharge. Patient is in agreement. - Vital Signs Vital signs: Temp Pulse Resp BP Pulse Ox 98.6 F 78 18 132/77 H 98 12/07/19 09:38 12/07/19 09:38 12/07/19 09:38 12/07/19 09:38 12/07/19 09:38 Discharge - Discharge Clinical Impression: Cough Acute conjunctivitis of both eyes Qualifiers: Acute conjunctivitis type: unspecified Qualified Code(s): H10.33 - Unspecified acute conjunctivitis, bilateral Condition: Stable Disposition: HOME, SELF-CARE Instructions: Conjunctivitis ([facility]), Upper Respiratory Illness ([facility]) Additional Instructions: Keep eyes clean Avoid scratching/touching eyes Wash hands regularly Use eye drops as directed Mask when coughing Maintain adequate fluid intake tylenol/ibuprofen as needed over the counter cold medication as needed for symptoms F/u: with your PCM in 2-3 days for a recheck Consider consult with Ophthalmology for ongoing/worsening symptoms Return to the ED with any worsening symptoms and/or development of fever, headache, changes in vision, eye pain, worsening eye redness, redness around the eyes, purulent discharge, sore throat, facial swelling, neck pain/stiffness, chest pain, palpitations, syncope, shortness of breath, trouble breathing, abdominal pain, n/v/d, blood in stool/urine, dysuria, or other worsening symptoms that are concerning to you. Prescriptions: Polymyxin B Sulf/Trimethoprim [Polytrim Eye Drops] 1 drop OD Q3H #10 ml Azithromycin [Zithromax 250 mg Tablet] 250 mg PO ASDIR PRN #6 tablet PRN Reason: Forms: Elevated Blood Pressure Referrals: MCKINLEY CONNOR MD [Primary Care Provider] - Follow up as needed
== END 2019-12-07 09:59 | disposition home or self-care (01) ==
LOC: ER 09:34
DX: R05 Cough (principal); H10.33 Unspecified acute conjunctivitis, bilateral; R09.81 Nasal congestion; R09.89 Other specified symptoms and signs involving the circulatory and respiratory systems; I10 Essential (primary) hypertension; E11.9 Type 2 diabetes mellitus without complications
CPT/HCPCS: 99283

== ENCOUNTER → 2020-01-21 | Outpatient (CLI) | payer MEDICAID ==
[2020-01-21 13:06] LABS: HEMATOCRIT 42.4 % (36.0-47.0); HEMOGLOBIN 14.3 g/dL (12.0-15.5); MEAN CORPUSCULAR HEMOGLOBIN 30.1 pg (27.0-33.4); MEAN CORPUSCULAR HGB CONC 33.6 g/dL (32.0-36.0); MEAN CORPUSCULAR VOLUME 90 fl (80-97); PLATELET COUNT 179 10^3/uL (150-450); RED BLOOD COUNT 4.74 10^6/uL (3.72-5.28); RED CELL DISTRIBUTION WIDTH 13.1 % (11.5-14.0); WHITE BLOOD COUNT 5.3 10^3/uL (4.0-10.5)
[2020-01-21 13:30] LABS: ALBUMIN 4.7 g/dL (3.5-5.0); ALKALINE PHOSPHATASE 84 U/L (38-126); ANION GAP 9 (5-19); ASPARTATE AMINO TRANSFERASE 22 U/L (14-36); BILIRUBIN,DIRECT 0.3 mg/dL (0.0-0.4); BILIRUBIN,TOTAL 0.7 mg/dL (0.2-1.3); BLOOD UREA NITROGEN 17 mg/dL (7-20); CALCIUM 9.8 mg/dL (8.4-10.2); CARBON DIOXIDE 33 mmol/L (22-30); CHLORIDE 98 mmol/L (98-107); GLUCOSE 227 mg/dL (75-110); IRON(TIBC) 104.4 ug/dL (37-170); POTASSIUM 4.1 mmol/L (3.6-5.0); TOTAL PROTEIN 7.6 g/dL (6.3-8.2)
[2020-01-22 07:24] LABS: HEPATITIS B SURFACE AB QUAL Non Reactive (.)
== END ==
LOC: OD 12:33
PROVIDERS: ATTEND Nurse Practitioner Family
DX: G35 Multiple sclerosis (principal)
CPT/HCPCS: 36415; 80053; 82306; 82607; 82728; 82746; 83540; 83550; 83735; 85027; 86706; 87798

== ENCOUNTER → 2020-04-25 | Outpatient (CLI) | payer MEDICAID ==
--- NOTE | 2020-04-25 16:34 | WOMENS IMAGING REPORT ---
EXAM DESCRIPTION: 3D SCREENING MAMMO BILAT IMAGES COMPLETED DATE/TIME: 04/25/2020 1:49 pm REASON FOR STUDY: Z12.31 SCREENING MAMMO Z12.31 ENCNTR SCREEN MAMMOGRAM FOR MALIGNANT NEOPLASM OF B RE COMPARISON: 2016 to 2018 EXAM PARAMETERS: Views: Standard craniocaudal and mediolateral oblique views of each breast recorded using digital acquisition and breast tomosynthesis. Read with the assistance of CAD. .[facility] [employer] Version 9.2 LIMITATIONS: None. FINDINGS: No suspicious masses, suspicious calcifications or architectural distortion. No areas of c oncern. IMPRESSION: NEGATIVE MAMMOGRAM. BIRADS 1. BREAST DENSITY: b. There are scattered areas of fibroglandular density. BIRAD: ASSESSMENT: 1 NEGATIVE RECOMMENDATION: ROUTINE SCREENING COMMENT: The patient has been notified of the results by letter per MQSA requirements. Additional no tification policies are in place for contacting patient with suspicious or incomplete findings. Quality ID #[id number]: The [employer] recommends an annual screening mammogram for women aged 40 years or over. This facility utilizes a reminder system to ensure that all patients receive reminder letters, and/or direct phone calls for appointments. This includes reminders for routine scr eening mammograms, diagnostic mammograms, or other Breast Imaging Interventions when appropriate. Th is patient will be placed in the appropriate reminder system. TECHNICAL DOCUMENTATION: FINDING NUMBER: (1) ASSESSMENT: (1) JOB ID: [id number] 2010 [employer]- All Rights Reserved Reading location - IP/workstation name: [email or web address]
== END ==
LOC: WI 12:55
PROVIDERS: ATTEND Internal Medicine Geriatric Medicine
DX: Z12.31 Encounter for screening mammogram for malignant neoplasm of breast (principal)
CPT/HCPCS: 77063; 77067

== ENCOUNTER → 2020-05-12 | Outpatient (CLI) | payer MEDICAID ==
[2020-05-12 15:49] LABS: ABSOLUTE EOSINOPHILS # (AUTO) 0.1 10^3/uL (0.0-0.6); ABSOLUTE MONOCYTES (AUTO) 0.5 10^3/uL (0.1-1.4); ABSOLUTE NEUT (AUTO) 3.3 10^3/uL (1.7-8.2); BASOPHILS % (AUTO) 0.6 % (0-2); EOSINOPHILS % (AUTO) 2.4 % (0-6); HEMATOCRIT 43.9 % (36.0-47.0); LYMPHOCYTES % (AUTO) 33.5 % (13-45); MEAN CORPUSCULAR HEMOGLOBIN 30.2 pg (27.0-33.4); MEAN CORPUSCULAR VOLUME 89 fl (80-97); MONOCYTES % (AUTO) 8.8 % (3-13); PLATELET COUNT 185 10^3/uL (150-450); RED BLOOD COUNT 4.95 10^6/uL (3.72-5.28); RED CELL DISTRIBUTION WIDTH 13.1 % (11.5-14.0); SEGMENTED NEUTROPHILS % (AUTO) 54.7 % (42-78); TOTAL CELLS COUNTED % (AUTO) 100 %; WHITE BLOOD COUNT 6.1 10^3/uL (4.0-10.5)
[2020-05-12 16:10] LABS: ALBUMIN 4.7 g/dL (3.5-5.0); ALKALINE PHOSPHATASE 84 U/L (38-126); ANION GAP 8 (5-19); ASPARTATE AMINO TRANSFERASE 21 U/L (14-36); BILIRUBIN,TOTAL 0.6 mg/dL (0.2-1.3); BLOOD UREA NITROGEN 20 mg/dL (7-20); CALCIUM 10.5 mg/dL (8.4-10.2); CARBON DIOXIDE 33 mmol/L (22-30); CHLORIDE 96 mmol/L (98-107); GLUCOSE 179 mg/dL (75-110); POTASSIUM 4.1 mmol/L (3.6-5.0); TOTAL PROTEIN 7.3 g/dL (6.3-8.2)
== END ==
LOC: OD 14:35
PROVIDERS: ATTEND Nurse Practitioner Family
DX: G35 Multiple sclerosis (principal)
CPT/HCPCS: 36415; 80053; 85025; 86695; 86696

== ENCOUNTER → 2020-07-28 | Outpatient (CLI) | payer MEDICAID ==
--- NOTE | 2020-07-28 15:15 | RADIOLOGY REPORT (SQ) ---
EXAM DESCRIPTION: MRI LT LOWER JOINT WITHOUT IMAGES COMPLETED DATE/TIME: 07/28/2020 2:40 pm REASON FOR STUDY: M25.562 PAIN IN LEFT KNEE M25.562 PAIN IN LEFT KNEE COMPARISON: 2014. TECHNIQUE: Leftknee images acquired and stored on PACS. Multiplanar images include fat sensitive se quences as T1, water sensitive sequences as FST2 or STIR, cartilage sensitive sequences as FSPD, and gradient echo sequences. LIMITATIONS: None. FINDINGS: JOINT AND BURSAE: Small effusion. BONE CORTEX AND MARROW: Marrow edema on the tibial side of the tibiofibular articulation relatively f ocally. Minimal fluid in this joint. Findings are likely related to degenerative arthropathy. No d iscrete fracture line. No suggestion of underlying bone lesion. ACL: Intact. No degeneration or ganglion cyst. PCL: Intact. MCL: Intact. No periligamentous edema or fluid. LCL: Intact. No periligamentous edema or fluid. MEDIAL MENISCUS: Loss of tissue throughout the posterior horn and root without gross recurrent tear. Degenerative ballooning we were slight extrusion. LATERAL MENISCUS: No tears. No abnormal signal. MEDIAL COMPARTMENT: Chondral thinning without focal full-thickness defect. LATERAL COMPARTMENT: Cartilage preserved. No bone bruises or reactive marrow edema. No osteophytes. PATELLA: No chondromalacia. No subchondral cysts. Medial and lateral retinacula intact. EXTENSOR MECHANISM: Intact. Quadriceps and patella tendons normal. SOFT TISSUES: Adjacent muscles and subcutaneous tissues normal. Normal flow void in popliteal artery and vein. OTHER: No other significant finding. IMPRESSION: 1. Degenerative and postoperative changes in the medial meniscus. No gross recurrent tear with there is considerable degenerative signal with extruded appearance. 2. Subchondral edema in the tibia adjacent to the tibiofibular articulation, presumed degenerative ar thropathy here. TECHNICAL DOCUMENTATION: JOB ID: [id number] 2010 [employer]- All Rights Reserved Reading location - IP/workstation name: [email or web address]
== END ==
LOC: RAD 13:59
PROVIDERS: ATTEND Physician Assistant
DX: M23.304 Other meniscus derangements, unspecified medial meniscus, left knee (principal); M25.562 Pain in left knee

== ENCOUNTER 2020-08-18 14:12 | Emergency (ER) | payer MEDICAID ==
--- NOTE | 2020-08-18 14:25 | ER Document Report ---
ED Medical Screen (RME) - General Chief Complaint: Pain All Over Stated Complaint: BACK PAIN Time Seen by Provider: 08/18/20 14:18 Primary Care Provider: LUCY STOREY PA [Primary Care Provider] - Follow up as needed Mode of Arrival: Wheelchair Information source: Patient Notes: 63-year-old female presents to ED for complaint of chest abdomen back pain. She states she was moving last week at the beginning of the week and then she started having pain and muscle pain for the last for 5 days. She is does have a history of multiple sclerosis and was moving from one house to another. She states she gets infusions for her MS and she is been taking her Flexeril. She states that her chest and right shoulder pain is better but she still having a lot of pain and it hurts to take deep breaths. She is alert oriented respirations regular nonlabored speaking in full sentences. I have greeted and performed a rapid initial assessment of this patient. A comprehensive ED assessment and evaluation of the patient, analysis of test results and completion of medical decision making process will be conducted by an additional ED providers. TRAVEL OUTSIDE OF THE [place] IN LAST 30 DAYS: No - Related Data Allergies/Adverse Reactions: No Known Allergies Allergy (Verified 08/18/20 14:18) Past Medical History - Past Medical History Cardiac Medical History: Reports: Hx Hypercholesterolemia, Hx Hypertension Denies: Hx Coronary Artery Disease, Hx Heart Attack Pulmonary Medical History: Reports: Hx Bronchitis Denies: Hx Asthma, Hx COPD, Hx Pneumonia Neurological Medical History: Denies: Hx Cerebrovascular Accident, Hx Seizures Endocrine Medical History: Reports: Hx Diabetes Mellitus Type 2 Renal/ Medical History: Reports: Hx Ectopic , Hx Ovarian Cysts. Denies: Hx Peritoneal Dialysis GI Medical History: Reports: Hx Gastroesophageal Reflux Disease, Hx Hepatitis - C, Hx Hiatal Hernia Musculoskeltal Medical History: Reports Hx Arthritis, Reports Hx Multiple Sclerosis Infectious Medical History: Reports: Hx Hepatitis - C Past Surgical History: Reports: Hx Gynecologic Surgery - ectopic , fibroid tumor removed, ovarian cyst removed, Hx Hysterectomy, Hx Orthopedic Surgery - bunionectomy. Denies: Hx Pacemaker - Immunizations Immunizations up to date: Yes Hx Diphtheria, Pertussis, Tetanus Vaccination: Yes Physical Exam - Vital signs Vitals: Temp Pulse Resp BP Pulse Ox 98.0 F 81 18 126/68 H 98 08/18/20 14:16 08/18/20 14:16 08/18/20 14:16 08/18/20 14:16 08/18/20 14:16 Course - Vital Signs Vital signs: Temp Pulse Resp BP Pulse Ox 98.0 F 81 18 126/68 H 98 08/18/20 14:16 08/18/20 14:16 08/18/20 14:16 08/18/20 14:16 08/18/20 14:16 Doctor's Discharge - Discharge Referrals: LUCY STOREY PA [Primary Care Provider] - Follow up as needed
[2020-08-18 15:07] LABS: ABSOLUTE EOSINOPHILS # (AUTO) 0.1 10^3/uL (0.0-0.6); ABSOLUTE LYMPHOCYTES (AUTO) 1.7 10^3/uL (0.5-4.7); ABSOLUTE MONOCYTES (AUTO) 0.8 10^3/uL (0.1-1.4); ABSOLUTE NEUT (AUTO) 5.2 10^3/uL (1.7-8.2); BASOPHILS % (AUTO) 0.6 % (0-2); EOSINOPHILS % (AUTO) 1.5 % (0-6); HEMATOCRIT 38.9 % (36.0-47.0); HEMOGLOBIN 13.3 g/dL (12.0-15.5); LYMPHOCYTES % (AUTO) 21.6 % (13-45); MEAN CORPUSCULAR HEMOGLOBIN 30.3 pg (27.0-33.4); MEAN CORPUSCULAR HGB CONC 34.2 g/dL (32.0-36.0); MEAN CORPUSCULAR VOLUME 88 fl (80-97); MONOCYTES % (AUTO) 10.2 % (3-13); PLATELET COUNT 184 10^3/uL (150-450); RED CELL DISTRIBUTION WIDTH 13.8 % (11.5-14.0); SEGMENTED NEUTROPHILS % (AUTO) 66.1 % (42-78); TOTAL CELLS COUNTED % (AUTO) 100 %; WHITE BLOOD COUNT 7.9 10^3/uL (4.0-10.5)
[2020-08-18 15:14] LABS: APPEARANCE,URINE CLEAR; BILIRUBIN,URINE NEGATIVE (NEGATIVE); COLOR,URINE YELLOW; GLUCOSE, URINE NEGATIVE (NEGATIVE); KETONES,URINE NEGATIVE (NEGATIVE); LEUKOCYTE ESTERASE,URINE NEGATIVE (NEGATIVE); NITRITE,URINE NEGATIVE (NEGATIVE); PROTEIN,URINE NEGATIVE (NEGATIVE); URINE SPECIFIC GRAVITY 1.021
[2020-08-18 15:23] LABS: ALBUMIN 4.2 g/dL (3.5-5.0); ALKALINE PHOSPHATASE 77 U/L (38-126); ANION GAP 7 (5-19); ASPARTATE AMINO TRANSFERASE 62 U/L (14-36); BILIRUBIN,DIRECT 0.3 mg/dL (0.0-0.4); BILIRUBIN,TOTAL 0.6 mg/dL (0.2-1.3); BLOOD UREA NITROGEN 19 mg/dL (7-20); CALCIUM 9.2 mg/dL (8.4-10.2); CARBON DIOXIDE 31 mmol/L (22-30); CHLORIDE 104 mmol/L (98-107); GLUCOSE 177 mg/dL (75-110); POTASSIUM 3.7 mmol/L (3.6-5.0); TOTAL PROTEIN 6.5 g/dL (6.3-8.2)
--- NOTE | 2020-08-18 16:33 | RADIOLOGY REPORT (SQ) ---
EXAM DESCRIPTION: ACUTE ABDOMEN SERIES IMAGES COMPLETED DATE/TIME: 08/18/2020 4:16 pm REASON FOR STUDY: abdominal and back pain COMPARISON: 12/03/2019 NUMBER OF VIEWS: Three views. TECHNIQUE: Frontal chest, supine abdomen and upright/decubitus abdomen radiographic images acquired. LIMITATIONS: None. FINDINGS: CHEST: Lungs clear of infiltrates. Calcified granuloma in the right upper lobe is unchang ed. FREE AIR: None. No abnormal gas collections. BOWEL GAS PATTERN: Gas pattern is nonobstructive. There is large amount of stool in the descending c olon. CALCIFICATIONS: No suspicious calcifications. HARDWARE: None in the abdomen. SOFT TISSUES: No gross mass or suggestion of organomegaly. BONES: No acute fracture. No worrisome bone lesions. OTHER: No other significant finding. IMPRESSION: Moderate stool in the descending colon. No evidence of obstruction. TECHNICAL DOCUMENTATION: JOB ID: [id number] 2010 [employer]- All Rights Reserved Reading location - IP/workstation name: [email or web address]
[2020-08-18] MEDS ORDERED: ACETAMINOPHEN 325 MG TABLET PO ONE (16:46)
[2020-08-18] MEDS ORDERED: HYDROMORPHONE HCL INJ/PF 2 MG/ML AMPULE IM ONE (18:36)
[2020-08-18] MEDS ORDERED: ONDANSETRON 4 MG TAB.RAPDIS PO ONE (18:36)
[2020-08-18] MEDS ORDERED: DEXAMETHASONE SOD PHOS INJ 10 MG/1 ML VIAL IM ONE (18:36)
--- NOTE | 2020-08-18 18:43 | ER Document Report ---
ED General - General Chief Complaint: Pain All Over Stated Complaint: BACK PAIN Time Seen by Provider: 08/18/20 14:18 Primary Care Provider: LUCY STOREY PA [NO LOCAL MD] - Follow up as needed Mode of Arrival: Wheelchair Information source: Patient Notes: Patient is a 64-year-old -[place] female with history of MS who comes in today with severe low and mid back pain. Denies abdominal pain. Denies chest pain. Reports pain started shortly after working hard to get her house ready for guests that were visiting from out of town. It hurts to sit up, bend, twist. TRAVEL OUTSIDE OF THE [place] IN LAST 30 DAYS: No - Related Data Allergies/Adverse Reactions: No Known Allergies Allergy (Verified 08/18/20 14:18) Home Medications: Ocravous infusions for MS Past Medical History - General Information source: Patient - Social History Smoking Status: Never Smoker Chew tobacco use (# tins/day): No Frequency of alcohol use: Rare Drug Abuse: None Family History: Reviewed & Not Pertinent Patient has homicidal ideation: No - Past Medical History Cardiac Medical History: Reports: Hx Hypercholesterolemia, Hx Hypertension Denies: Hx Coronary Artery Disease, Hx Heart Attack Pulmonary Medical History: Reports: Hx Bronchitis Denies: Hx Asthma, Hx COPD, Hx Pneumonia Neurological Medical History: Denies: Hx Cerebrovascular Accident, Hx Seizures Endocrine Medical History: Reports: Hx Diabetes Mellitus Type 2 Renal/ Medical History: Reports: Hx Ectopic , Hx Ovarian Cysts. Denies: Hx Peritoneal Dialysis GI Medical History: Reports: Hx Gastroesophageal Reflux Disease, Hx Hepatitis - C, Hx Hiatal Hernia Musculoskeletal Medical History: Reports Hx Arthritis, Reports Hx Multiple Sclerosis Infectious Medical History: Reports: Hx Hepatitis - C Past Surgical History: Reports: Hx Gynecologic Surgery - ectopic , fibroid tumor removed, ovarian cyst removed, Hx Hysterectomy, Hx Orthopedic Surgery - bunionectomy. Denies: Hx Pacemaker - Immunizations Immunizations up to date: Yes Hx Diphtheria, Pertussis, Tetanus Vaccination: Yes Hx Pneumococcal Vaccination: 11/28/00 Review of Systems - Review of Systems Notes: Constitutional: No fevers. No chills. EENT: No eye redness. No eye pain. No ear pain. No sore throat. Cardiovascular: No chest pain. No palpitations. Respiratory: No cough. No shortness of breath. No respiratory distress. Gastrointestinal: No abdominal pain. No nausea, vomiting, or diarrhea. Genitourinary: Atraumatic. No lesions. No pain. No discharge. Musculoskeletal: Atraumatic. No swelling. No deformities. Positive mid and low back pain Skin: No rash or lesions. Lymphatic: No swollen lymph nodes. Neurologic: No headache. No syncope. Psychiatric: No suicidal or homicidal ideation. Physical Exam - Vital signs Vitals: Temp Pulse Resp BP Pulse Ox 98.0 F 81 18 126/68 H 98 08/18/20 14:16 08/18/20 14:16 08/18/20 14:16 08/18/20 14:16 08/18/20 14:16 - Notes Notes: General: Well-developed, well-nourished. Appears uncomfortable. non-toxic appearing. Cardiac: Well-perfused. Regular rate and rhythm. No murmurs, rubs, or gallops. Pulmonary: No respiratory distress. No cyanosis. Bilateral lung fiels are clear to auscultation. Abdominal: Non-distended. Non-rigid. Bowels sounds are present in all four quadrants. No guarding or rebound. No abdominal masses appreciated HEENT: Head is atraumatic. Conjunctivae not reddened. No tearing. PERRL. EOMI. Orbits atraumatic. No periorbital swelling or erythema. Oropharynx is without erythema, swelling, or exudates. Neck: Supple. No adenopathy. No meningismus. Dermatologic: Warm with good turgor. No rash. Atraumatic. Chest: Atraumatic. No chest wall tenderness to palpation. Musculoskeletal: Moves all extremities well. No range of motion deficits. Tenderness to palpation of the left paralumbar and mid lumbar regions. No step- off. Also right and left parathoracic tenderness. No midline tenderness or step-off Genitourinary: Examination deferred Neurologic: No gross neurologic deficits. Psychiatric: Normal mood. Course - Re-evaluation Re-evalutation: 08/18/20 18:42 Patient with a history consistent with musculoskeletal pain. Pain is readily reproducible on exam. She does not have any chest pain or shortness of breath. I do not think this is an atypical cardiac presentation. Patient states that she does not get exacerbations of MS. I think most likely she is got some muscle spasms and possibly a pinched nerve causing the symptoms. I am shot of Decadron as well as a low dose of Dilaudid for pain relief here. We will get x- rays of the thoracic and lumbar spines which I suspect will be negative. Will reassess shortly. 08/18/20 20:03 Patient has a small T9 compression fracture. Also some arthritic changes in the lumbar spine. Discussed these findings with ED attending Brett. He will electronically prescribed some pain medication. I will give her a prescription for some [place] to take home this evening. We will also give her orthopedics for follow-up - Vital Signs Vital signs: Temp Pulse Resp BP Pulse Ox 98.0 F 81 18 126/68 H 98 08/18/20 14:16 08/18/20 14:16 08/18/20 14:16 08/18/20 14:16 08/18/20 14:16 - Laboratory Result Diagrams: 08/18/20 14:40 08/18/20 14:40 Laboratory results interpreted by me: 08/18/20 08/18/20 14:40 14:40 Carbon Dioxide 31 H Est GFR (MDRD) Non-Af 53 L Glucose 177 H AST 62 H ALT 38 H Urine Urobilinogen 2.0 H - Diagnostic Test Radiology reviewed: Reports reviewed Discharge - Discharge Clinical Impression: Compression fx, thoracic spine Qualifiers: Encounter type: initial encounter Thoracic vertebra fracture level: T9 Q ualified Code(s): S22.070A - Wedge compression fracture of T9-T10 vertebra, initial encounter for closed fracture Condition: Good Disposition: HOME, SELF-CARE Instructions: Compression Fracture of the Spine ([facility]) Prescriptions: Hydrocodone/Acetaminophen [[place] 5-325 mg Tablet] 1 tab PO Q6H PRN #15 tablet PRN Reason: For Back Pain Forms: Return to Work Referrals: CHA MITCHELL DO [ACTIVE STAFF] - Follow up in 3-5 days
--- NOTE | 2020-08-18 19:47 | RADIOLOGY REPORT (SQ) ---
EXAM DESCRIPTION: L SPINE WHOLE IMAGES COMPLETED DATE/TIME: 08/18/2020 7:30 pm REASON FOR STUDY: pain COMPARISON: None. NUMBER OF VIEWS: Five views including obliques. TECHNIQUE: AP, lateral, oblique, and sacral radiographic images acquired of the lumbar spine. LIMITATIONS: None. FINDINGS: MINERALIZATION: Normal. SEGMENTATION: Normal. No transitional anatomy. ALIGNMENT: Normal. VERTEBRAE: Maintained height. No fracture or worrisome bone lesion. DISCS: There is narrowing of the L5-S1 disc space. Marginal osteophytes are seen at several levels. There appear to be bridging osteophytes at L5-S1 on the left. POSTERIOR ELEMENTS: Mild hypertrophic facet changes from L4-S1. HARDWARE: None in the spine. PARASPINAL SOFT TISSUES: Normal. PELVIS: Intact as visualized. No fractures or worrisome bone lesions. SI joints intact. OTHER: No other significant finding. IMPRESSION: Degenerative disc disease and facet arthropathy. Spondylosis. TECHNICAL DOCUMENTATION: JOB ID: [id number] 2010 [email or web address]- All Rights Reserved Reading location - IP/workstation name: [email or web address]
--- NOTE | 2020-08-18 19:49 | RADIOLOGY REPORT (SQ) ---
EXAM DESCRIPTION: T SPINE AP/LAT IMAGES COMPLETED DATE/TIME: 08/18/2020 7:30 pm REASON FOR STUDY: pain COMPARISON: 2009 NUMBER OF VIEWS: Two views. TECHNIQUE: AP and lateral radiographic images acquired of the thoracic spine. LIMITATIONS: None. FINDINGS: MINERALIZATION: Normal. ALIGNMENT: Normal. No scoliosis. VERTEBRAE: There is minimal loss of height of the T9 vertebra. DISCS: No significant loss of height or significant narrowing. No large osteophytes. HARDWARE: None in the spine. MEDIASTINUM AND SOFT TISSUES: Normal heart size and aortic contour. No soft tissue abnormality. VISUALIZED LUNG MACEDO: Clear. OTHER: No other significant finding. IMPRESSION: Mild T9 compression changes of uncertain age. TECHNICAL DOCUMENTATION: JOB ID: [id number] 2010 [employer] All Rights Reserved Reading location - IP/workstation name: [email or web address]
--- NOTE | 2020-08-18 20:06 | ER Document Report ---
Doctor's Note Notes: 08/18/20 20:06 New comp fx - sent [facility] for NADYA
[2020-08-18] MEDS ORDERED: HYDROCODONE/ACETAMINOPHEN 5-325 MG (6 TAB/ER DISP) PO PRN (20:09)
[2020-08-18 20:37] VITALS: BP 161/75
== END 2020-08-18 20:39 | disposition home or self-care (01) ==
LOC: ER 14:12
DX: M47.816 Spondylosis without myelopathy or radiculopathy, lumbar region (principal); M51.36 Other intervertebral disc degeneration, lumbar region; G35 Multiple sclerosis; M79.10 Myalgia, unspecified site; I10 Essential (primary) hypertension; E11.9 Type 2 diabetes mellitus without complications; Z79.899 Other long term (current) drug therapy
CPT/HCPCS: 99284; 96372; 36415; 87086; 83690; 85025; 80053; 81001; 74022; 72110; 72070; J3490; S0119; J1170; J1100

== ENCOUNTER → 2020-08-26 | Outpatient (CLI) | payer MEDICAID ==
--- NOTE | 2020-08-26 11:05 | RADIOLOGY REPORT (SQ) ---
EXAM DESCRIPTION: MRI THORACIC SPINE WITHOUT IMAGES COMPLETED DATE/TIME: 08/26/2020 10:34 am REASON FOR STUDY: S22.070A WEDGE COMPRESSION FRACTURE OF T9-T10 VERTEBRA, INIT S22.070A WEDGE COMPR ESSION FRACTURE OF T9-T10 VERTEBRA, INIT COMPARISON: 03/23/2018 TECHNIQUE: Sagittal and Axial imaging includes T1, T2, STIR and gradient echo sequences. LIMITATIONS: None. FINDINGS: LOCALIZER: No worrisome findings. ALIGNMENT: Normal. VERTEBRAE: There is mild height loss superior endplate T6. No evidence of acute compression fracture . BONE MARROW: Low T1 and high T2 signal associated with Schmorl's node formation T5-6 endplates. HARDWARE: None in the spine. CORD: Normal in size and signal intensity. SOFT TISSUES: No soft tissue masses. THORACIC DISCS T1-T12: Bulging disc at multiple levels. No evidence of acute disc herniation. IMPRESSION: Modic type 1 endplate changes T5-6. No evidence of acute compression fracture. TECHNICAL DOCUMENTATION: JOB ID: [id number] 2010 [email or web address]- All Rights Reserved Reading location - IP/workstation name: [email or web address]
== END ==
LOC: RAD 09:27
PROVIDERS: ATTEND Physician Assistant
DX: S22.070A Wedge compression fracture of T9-T10 vertebra, initial encounter for closed fracture (principal); X58.XXXA Exposure to other specified factors, initial encounter; Y93.9 Activity, unspecified; Y92.9 Unspecified place or not applicable
CPT/HCPCS: 72146

== ENCOUNTER → 2020-09-29 | Outpatient (CLI) | payer MEDICAID ==
[2020-09-29 15:49] LABS: ABSOLUTE MONOCYTES (AUTO) 0.6 10^3/uL (0.1-1.4); ABSOLUTE NEUT (AUTO) 4.4 10^3/uL (1.7-8.2); BASOPHILS % (AUTO) 0.7 % (0-2); EOSINOPHILS % (AUTO) 0.7 % (0-6); HEMATOCRIT 39.4 % (36.0-47.0); HEMOGLOBIN 13.4 g/dL (12.0-15.5); LYMPHOCYTES % (AUTO) 28.2 % (13-45); MEAN CORPUSCULAR HEMOGLOBIN 30.1 pg (27.0-33.4); MEAN CORPUSCULAR HGB CONC 34.1 g/dL (32.0-36.0); MEAN CORPUSCULAR VOLUME 88 fl (80-97); PLATELET COUNT 204 10^3/uL (150-450); RED BLOOD COUNT 4.46 10^6/uL (3.72-5.28); RED CELL DISTRIBUTION WIDTH 14.7 % (11.5-14.0); SEGMENTED NEUTROPHILS % (AUTO) 62.4 % (42-78); TOTAL CELLS COUNTED % (AUTO) 100 %
[2020-09-29 16:10] LABS: ALBUMIN 4.3 g/dL (3.5-5.0); ALKALINE PHOSPHATASE 74 U/L (38-126); ANION GAP 11 (5-19); ASPARTATE AMINO TRANSFERASE 22 U/L (14-36); BILIRUBIN,DIRECT 0.1 mg/dL (0.0-0.4); BILIRUBIN,TOTAL 0.4 mg/dL (0.2-1.3); BLOOD UREA NITROGEN 17 mg/dL (7-20); CALCIUM 9.5 mg/dL (8.4-10.2); CARBON DIOXIDE 26 mmol/L (22-30); CHLORIDE 102 mmol/L (98-107); GLUCOSE 129 mg/dL (75-110); POTASSIUM 3.6 mmol/L (3.6-5.0); TOTAL PROTEIN 6.9 g/dL (6.3-8.2)
== END ==
LOC: OD 14:13
PROVIDERS: ATTEND Nurse Practitioner Family
DX: G35 Multiple sclerosis (principal)
CPT/HCPCS: 36415; 80053; 85025

== ENCOUNTER → 2020-10-13 | Outpatient (CLI) | payer MEDICAID | LOC: RAD 12:17 | PROVIDERS: ATTEND Specialist | DX: G35 Multiple sclerosis (principal) | CPT/HCPCS: 70553; 72156; A9576 ==

== ENCOUNTER → 2020-10-28 | Outpatient (CLI) | payer MEDICAID ==
[2020-10-28 13:58] VITALS: BP 136/75
--- NOTE | 2020-10-28 13:58 | ER [facility] ASSESSMENT REPORT ---
Intake - In the Last 14 days Have you traveled outside [place]?: No Have you been in close contact with someone CONFIRMED: No Worked in Healthcare?: No - Symptoms Subjective Fever([place] feverish): No Chills: No Muscule Aches: No Runny Nose: No Sore Throat: No Cough (New or worsening chronic cough): Yes Shortness of breath: No Nausea or Vomiting: No Headache: No Abdominal Pain: No Diarrhea(3 or more loose stools in last 24 hours): No - Do you have any of the following Chronic lung disease: Asthma or emphysema or COPD: No Cystic Fibrosis: No Diabetes: Yes High Blood Pressure: Yes Cardiovascular Disease: No Chronic Kidney Disease: No Chronic Liver Disease: No Chronic blood disorder like Sickle Cell Disease: No Weak immune system due to disease or medication: No Neurologic condition that limits movement: Yes Neurological Condition Comment: MS Developmental delay - Moderate to Severe: No Recent (within past 2 weeks) or current : No Morbid Obesity (>100 pounds over ideal weight): No - Objective Temperature: 98.7 F Pulse Rate: 72 Respiratory Rate: 15 Blood Pressure: 136/75 O2 Sat by Pulse Oximetry: 96 Objective: Given above, testing performed: If Testing Performed: Test Specimen Type Sent to General - General Information source: Patient Notes: Patient presents to the [facility] for screening for the coronavirus. Patient had a cough for the past 5 days. Patient does have an underlying history of high blood pressure, diabetes and MS. - Related Data Allergies/Adverse Reactions: No Known Allergies Allergy (Verified 08/18/20 14:18) Past Medical History - General Information source: Patient - Social History Family History: Reviewed & Not Pertinent - Past Medical History Cardiac Medical History: Reports: Hx Hypercholesterolemia, Hx Hypertension Denies: Hx Coronary Artery Disease, Hx Heart Attack Pulmonary Medical History: Reports: Hx Bronchitis Denies: Hx Asthma, Hx COPD, Hx Pneumonia Neurological Medical History: Reports: Other - MS. Denies: Hx Cerebrovascular Accident, Hx Seizures Endocrine Medical History: Reports: Hx Diabetes Mellitus Type 2 Renal/ Medical History: Reports: Hx Ectopic , Hx Ovarian Cysts. Denies: Hx Peritoneal Dialysis GI Medical History: Reports: Hx Gastroesophageal Reflux Disease, Hx Hepatitis - C, Hx Hiatal Hernia Musculoskeletal Medical History: Reports Hx Arthritis, Reports Hx Multiple Scl erosis Infectious Medical History: Reports: Hx Hepatitis - C Past Surgical History: Reports: Hx Gynecologic Surgery - ectopic , fibroid tumor removed, ovarian cyst removed, Hx Hysterectomy, Hx Orthopedic Surgery - bunionectomy Physical Exam - Notes Notes: The patient was evaluated during the global Covid 19 pandemic, and that diagnosis was suspected/considered upon their initial presentation. Their evaluation, treatment and testing was consistent with current guidelines for patients who present with complaints or symptoms that may be related to Covid 19. Full physical exam could not be performed due to covid 19 isolation protocols. Constitutional: Nontoxic appearance, no acute distress Eyes: Nonicteric, extraocular movements intact, sclera clear Cardiovascular: Heart rate and rhythm regular, no JVD Respiratory: Breath sounds clear bilaterally, nonlabored breathing, no use of accessory muscles, no tachypnea Gastrointestinal: Abdomen not distended Muculoskeletal: Moves all extremities well Skin: Normal color Neuro: Awake alert oriented, normal speech Psych: Normal mood and affect Diagnostic Results Laboratory Results: Patient presents with upper respiratory symptoms worrisome for possible Covid 19. Patient does not have emergency worrying symptoms such as difficulty breathing, shortness of breath, chest pain, pressure, confusion or cyanosis. Patient appears suitable for discharge as vital signs are stable and patient is nontoxic in appearance. Good return precautions have been discussed with patient, patient verbalized understanding and is agreeable with discharge plan of care at this time. Patient Education/Counseling Counseling/Education: Patient was provided with discharge information including: As a person under investigation for Covid 19, the [place] department of Health and Human Services, division of public health advises you to adhere to the following guidance until your test results are reported to you. If your test result is positive, you will receive additional information from your provider and your local health department at that time. Remain at home until you are cleared by the health provider or public health authorities. Keep a log of visitors to your home, notify any visitors to your home of your isolation status. If you plan to move to a new address or leave the county, notify the local health department in your County. Call your doctor or seek care if you have an urgent medical need. Before seeking medical care, call ahead to get instructions from the provider before arriving at the medical office clinic or hospital. Notify them that you are being tested for the virus that causes Covid 19 so that arrangements can be made, as necessary, to prevent transmission to others in the healthcare setting. Next, notify the local health department in your county. If a medical emergency arises and you need to call 911, inform the first responders that you are being tested for the virus that causes Covid 19. Next, notify the local health department in your county. [facility] Discharge - Discharge Clinical Impression: Encounter for screening laboratory testing for COVID-19 virus Condition: Stable Disposition: Home; Selfcare
[2020-10-28 15:54] LABS: A TYPE INFLUENZA AG NEGATIVE (NEGATIVE); B INFLUENZA AG NEGATIVE (NEGATIVE)
== END ==
LOC: RDC 13:23
PROVIDERS: ATTEND Nurse Practitioner Family
DX: Z20.828 Contact with and (suspected) exposure to other viral communicable diseases (principal); R05 Cough; E11.9 Type 2 diabetes mellitus without complications; I10 Essential (primary) hypertension; E78.00 Pure hypercholesterolemia, unspecified; G35 Multiple sclerosis; K21.9 Gastro-esophageal reflux disease without esophagitis; K44.9 Diaphragmatic hernia without obstruction or gangrene; Z86.19 Personal history of other infectious and parasitic diseases
CPT/HCPCS: 87070; 87880; 87635; 87804; 99201; 99211; C9803

== ENCOUNTER → 2020-10-31 | Outpatient (CLI) | payer MEDICAID ==
--- NOTE | 2020-10-31 13:45 | RADIOLOGY REPORT (SQ) ---
EXAM DESCRIPTION: MRI LUMBAR SPINE WITHOUT IMAGES COMPLETED DATE/TIME: 10/31/2020 1:04 pm REASON FOR STUDY: (M54.16)RADICULOPATHY, LUMBAR REGION M54.16 RADICULOPATHY, LUMBAR REGION COMPARISON: None. TECHNIQUE: Sagittal and Axial imaging includes T1, T2, STIR and gradient echo sequences. Coronal T2/ HASTE imaging. LIMITATIONS: None. FINDINGS: VISUALIZED UPPER ABDOMEN: Limited evaluation. No acute or suspicious findings suggested. SEGMENTATION: No transitional anatomy. The lowest well-developed disc space is labeled L5-S1. ALIGNMENT: Anatomic. VERTEBRAE: Intact. BONE MARROW: Reactive marrow changes at L5-S1. DISC SIGNAL: There is decreased T2 signal from L3-S1. There is narrowing of the L5-S1 disc space and mild narrowing at L3-4 and L4-5. POSTERIOR ELEMENTS: Generally intact. No pars defect evident. HARDWARE: None in the spine. CORD AND CONUS: Normal in size and signal intensity. Conus at the L1 level. SOFT TISSUES: No aortic aneurysm seen. No bulky retroperitoneal adenopathy or mass. No paraspinal mas s or fluid. L1-L2: No significant spinal stenosis or exit foraminal stenosis. L2-L3: No significant spinal stenosis or exit foraminal stenosis. L3-L4: Mild circumferential disc bulge and mild hypertrophic ligament and facet changes with no signi ficant central canal or foraminal stenosis. L4-L5: Mild hypertrophic facet and ligament changes with no central canal or foraminal stenoses. L5-S1: Mild circumferential disc bulge with no central canal or foraminal stenosis. LOWER THORACIC: Incompletely imaged. No stenosis seen. SACRUM: Visualized upper sacrum intact. OTHER: No other significant findings. IMPRESSION: Mild disc bulging and mild facet arthropathy with no significant central canal or forami nal stenoses. TECHNICAL DOCUMENTATION: JOB ID: [id number] 2010 [employer]- All Rights Reserved Reading location - IP/workstation name: [email or web address]
== END ==
LOC: RAD 12:26
PROVIDERS: ATTEND Physician Assistant
DX: M51.16 Intervertebral disc disorders with radiculopathy, lumbar region (principal)
CPT/HCPCS: 72148

== ENCOUNTER → 2020-12-05 | Outpatient (CLI) | payer MEDICAID ==
[2020-12-05 13:32] VITALS: BP 116/55
--- NOTE | 2020-12-05 13:32 | ER [facility] ASSESSMENT REPORT ---
Intake - In the Last 14 days Have you traveled outside [place]?: No Have you been in close contact with someone CONFIRMED: No Worked in Healthcare?: No - Symptoms Subjective Fever([place] feverish): No Chills: No Muscule Aches: Yes Runny Nose: Yes Sore Throat: No Cough (New or worsening chronic cough): Yes Shortness of breath: No Nausea or Vomiting: Yes Headache: No Abdominal Pain: No Diarrhea(3 or more loose stools in last 24 hours): No - Do you have any of the following Chronic lung disease: Asthma or emphysema or COPD: No Cystic Fibrosis: No Diabetes: Yes High Blood Pressure: Yes Cardiovascular Disease: Yes Chronic Kidney Disease: No Chronic Liver Disease: Yes Chronic blood disorder like Sickle Cell Disease: No Weak immune system due to disease or medication: No Neurologic condition that limits movement: Yes Developmental delay - Moderate to Severe: No Recent (within past 2 weeks) or current : No Morbid Obesity (>100 pounds over ideal weight): No - Objective Temperature: 98.1 F Pulse Rate: 69 Respiratory Rate: 17 Blood Pressure: 116/55 O2 Sat by Pulse Oximetry: 98 Objective: Given above, testing performed: Flu and Covid Disposition: Home; Selfcare General - General Stated Complaint: Cough Time Seen by Provider: 12/05/20 12:40 Mode of Arrival: Ambulatory Information source: Patient - HPI Notes: 65-year-old female presents [facility] clinic for COVID-19 testing. Patient reports no known contact with Covid positive individual. Onset of symptoms 12/02/2020. Patient is reporting nonproductive cough, muscle aches, runny nose, and nausea that is instigated by cough episodes. She denies any significant fever or chills, sore throat, shortness of breath, headache, abdominal pain or diarrhea. - Related Data Allergies/Adverse Reactions: No Known Allergies Allergy (Verified 08/18/20 14:18) Past Medical History - General Information source: Patient - Social History Smoking Status: Never Smoker Family History: Reviewed & Not Pertinent - Past Medical History Cardiac Medical History: Reports: Hx Hypercholesterolemia, Hx Hypertension Denies: Hx Coronary Artery Disease, Hx Heart Attack Pulmonary Medical History: Reports: Hx Bronchitis Denies: Hx Asthma, Hx COPD, Hx Pneumonia EENT Medical History: Reports: None Neurological Medical History: Reports: None. Denies: Hx Cerebrovascular Accident, Hx Seizures Endocrine Medical History: Reports: Hx Diabetes Mellitus Type 2 Renal/ Medical History: Reports: Hx Ectopic , Hx Ovarian Cysts. Denies: Hx Peritoneal Dialysis Malignancy Medical History: Reports: None GI Medical History: Reports: Hx Gastroesophageal Reflux Disease, Hx Hepatitis - C, Hx Hiatal Hernia Musculoskeletal Medical History: Reports Hx Arthritis, Reports Hx Multiple Sclerosis Skin Medical History: Reports None Psychiatric Medical History: Reports: None Traumatic Medical History: Reports: None Infectious Medical History: Reports: Hx Hepatitis - C Past Surgical History: Reports: Hx Gynecologic Surgery - ectopic , fibroid tumor removed, ovarian cyst removed, Hx Hysterectomy, Hx Orthopedic Surgery - bunionectomy. Denies: Hx Pacemaker Physical Exam - General General appearance: Appears well, Alert In distress: None Notes: PHYSICAL EXAMINATION: GENERAL: Well-appearing and in no acute distress. HEAD: Atraumatic, normocephalic. EYES: sclera anicteric, conjunctiva are normal. ENT: nares patent. Moist mucous membranes. NECK: Normal range of motion, supple without lymphadenopathy. LUNGS: No increased work of breathing. Lung sounds CTAB and equal. No wheezes rales or rhonchi. HEART: Regular rate and rhythm without murmurs. ABDOMEN: Soft, nontender, normal bowel sounds, no guarding. EXTREMITIES: Normal range of motion, no pitting edema. No cyanosis. NEUROLOGICAL: A&O x 3. Normal speech. PSYCH: Normal mood, normal affect. SKIN: Warm, Dry, normal turgor, no rashes or lesions noted Patient Education/Counseling Counseling/Education: Patient presents with symptoms associated with possible Covid 19 infection. Patient does not have emergency worrying symptoms such as difficulty breathing, shortness of breath, chest pain, pressure, confusion or cyanosis. Patient a ppears suitable for discharge as vital signs are stable and patient is nontoxic in appearance. Good return precautions have been discussed with patient, patient verbalized understanding and is agreeable with discharge plan of care at this time. Guidance for worsening S/SX: As a person under investigation for Covid 19, the [facility] of Health and Human Services, division of public health advises you to adhere to the following guidance until your test results are reported to you. If your test result is positive, you will receive additional information from your provider and your local health department at that time. Remain at home until you are cleared by the health provider or public health authorities. Keep a log of visitors to your home, notify any visitors to your home of your isolation status. If you plan to move to a new address or leave the county, notify the local health department in your County. Call your doctor or seek care if you have an urgent medical need. Before seeking medical care, call ahead to get instructions from the provider before arriving at the medical office clinic or hospital. Notify them that you are b eing tested for the virus that causes Covid 19 so that arrangements can be made, as necessary, to prevent transmission to others in the healthcare setting. Next, notify the local health department in your county. If a medical emergency arises and you need to call 911, inform the first responders that you are being tested for the virus that causes Covid 19. Next, notify the local health department in your county. [facility] Discharge - Discharge Clinical Impression: Encounter for screening laboratory testing for COVID-19 virus Upper respiratory infection Qualifiers: URI type: unspecified URI Qualified Code(s): J06.9 - Acute upper respiratory infection, unspecified Condition: Good Disposition: Home; Selfcare
[2020-12-05 14:34] LABS: A TYPE INFLUENZA AG NEGATIVE (NEGATIVE); B INFLUENZA AG NEGATIVE (NEGATIVE)
== END ==
LOC: RDC 12:05
PROVIDERS: ATTEND Registered Nurse
DX: J06.9 Acute upper respiratory infection, unspecified (principal); Z20.822 Contact with and (suspected) exposure to COVID-19; R05 Cough; R09.89 Other specified symptoms and signs involving the circulatory and respiratory systems; M79.10 Myalgia, unspecified site; R11.0 Nausea; G35 Multiple sclerosis; I10 Essential (primary) hypertension; E78.00 Pure hypercholesterolemia, unspecified; E11.9 Type 2 diabetes mellitus without complications; K21.9 Gastro-esophageal reflux disease without esophagitis; M13.80 Other specified arthritis, unspecified site; Z86.19 Personal history of other infectious and parasitic diseases
CPT/HCPCS: 87635; 87804; C9803; 99211

== ENCOUNTER 2020-12-12 15:27 | Emergency (ER) | payer MEDICAID ==
[2020-12-12 16:10] VITALS: BP 138/69
[2020-12-12] MEDS ORDERED: KETOROLAC TROMETHAMINE INJ/PF 30 MG/1 ML SDV IM ONE (17:19)
--- NOTE | 2020-12-12 17:26 | ER Document Report ---
ED Extremity Problem, Lower - General Chief Complaint: Knee Pain Stated Complaint: KNEE PAIN Time Seen by Provider: 12/12/20 17:15 Primary Care Provider: MCKINLEY CONNOR MD [Primary Care Provider] - Follow up as needed TRAVEL OUTSIDE OF THE [place] IN LAST 30 DAYS: No - HPI Patient complains to provider of: Pain, Swelling Location: Leg Notes: Patient with complaints of left leg pain and swelling. The patient states she had a meniscus tear which was repaired about 2 months ago in the left knee. States for the last month she has been having some pain in the left leg. The pain is located in the medial and lateral aspect of the knee, the left thigh as well as the left buttocks. She also complains of swelling. She states that she does have a history of sciatica and this feels somewhat like sciatica. Her biggest concern is that the left leg is swollen she wanted to make sure she does not have a blood clot. She denies cancer, hormone use, history of DVT or PE. She denies any fever. She denies any chest pain or shortness of breath. No nausea, vomiting, diarrhea. No rash. Patient's pain in the left leg is mode rate, constant, worse with movement, nothing makes it better. Patient denies any recent trauma or fall. She denies any other complaints at this time. - Related Data Allergies/Adverse Reactions: No Known Allergies Allergy (Verified 08/18/20 14:18) Past Medical History - Social History Smoking Status: Unknown if Ever Smoked Frequency of alcohol use: None Drug Abuse: None Family History: Reviewed & Not Pertinent - Past Medical History Cardiac Medical History: Reports: Hx Hypercholesterolemia, Hx Hypertension Denies: Hx Coronary Artery Disease, Hx Heart Attack Pulmonary Medical History: Reports: Hx Bronchitis Denies: Hx Asthma, Hx COPD, Hx Pneumonia Neurological Medical History: Denies: Hx Cerebrovascular Accident, Hx Seizures Endocrine Medical History: Reports: Hx Diabetes Mellitus Type 2 Renal/ Medical History: Reports: Hx Ectopic , Hx Ovarian Cysts. Denies: Hx Peritoneal Dialysis GI Medical History: Reports: Hx Gastroesophageal Reflux Disease, Hx Hepatitis - C, Hx Hiatal Hernia Musculoskeletal Medical History: Reports Hx Arthritis, Reports Hx Multiple Sclerosis Infectious Medical History: Reports: Hx Hepatitis - C Past Surgical History: Reports: Hx Gynecologic Surgery - ectopic , fibroid tumor removed, ovarian cyst removed, Hx Hysterectomy, Hx Orthopedic Surgery - bunionectomy. Denies: Hx Pacemaker - Immunizations Immunizations up to date: Yes Hx Diphtheria, Pertussis, Tetanus Vaccination: Yes Hx Pneumococcal Vaccination: 11/28/00 Review of Systems - Review of Systems -: Yes All other systems reviewed and negative Physical Exam - Vital signs Vitals: Temp Pulse Resp BP Pulse Ox 98.2 F 69 18 138/69 H 97 12/12/20 16:08 12/12/20 16:08 12/12/20 16:08 12/12/20 16:08 12/12/20 16:08 - Notes Notes: GENERAL: alert, cooperative, nontoxic, no distress. HEAD: normocephalic, atraumatic EYES: conjunctiva pink without discharge, no external redness or swelling. EARS: no external swelling, no external redness NOSE: atraumatic, no external swelling MOUTH/THROAT: mucous membranes moist and pink NECK: soft, supple, full range of motion, no meningismus. CHEST: no distress, lungs clear and equal throughout. No wheezing, rales, rhonchi. CARDIAC: regular rate and rhythm, no murmur EXTREMITIES: full range of motion of all extremities. Mild tenderness to palpation to the medial aspect and lateral aspect of the left knee as well as the lateral left thigh and anterior left thigh. There is mild swelling noted to the left lower extremity. There is no redness. Normal pulse and sensation distally. Mild tenderness to palpation of the left hip. NEURO: alert and oriented 3, no focal deficits, full range of motion of all extremities. PYSCH: appropriate mood, affect. Patient is cooperative. SKIN: pink, warm, dry, no rash. Course - Re-evaluation Re-evalutation: 12/12/20 21:47 Patient resting comfortably at this time. I have gone over results with the patient. Questions of been answered. Will discharge home. Patient is nontoxic-appearing with stable vitals. Here with complaints of left hip pain and left leg pain. Also complains of some swelling. She denies any traumatic injury or fall. She has no sign of cauda equina, epidural abscess/bleed, discitis, osteomyelitis, pyelonephritis, AAA. She is noted to have some mild swelling to the left lower extremity but no redness or signs of infection. Neurovascular she is intact, compartments are soft. Labs are unremarkable for any significant abnormalities. Left hip x-ray shows no acute abnormalities per radiologist. Preliminary report of the venous Doppler of the left lower extremity is negative for DVT. Patient did have a meniscus surgery a few months ago, it is possible that some of the swelling is secondary to that. Patient also complains of some low back pain with some radicular symptoms. Patient will be discharged home with a prescription for NSAIDs and instructions to elevate her leg and follow-up with her primary care doctor at the next available appointment. Follow-up sooner for worsening pain, high fever, persistent vomiting, numbness, tingling, weakness, any further concerns. - Vital Signs Vital signs: Temp Pulse Resp BP Pulse Ox 98.2 F 69 18 138/69 H 97 12/12/20 16:08 12/12/20 16:08 12/12/20 16:08 12/12/20 16:08 12/12/20 16:08 - Laboratory Results Result Diagrams: 12/12/20 17:33 12/12/20 17:33 Laboratory Results Interpreted: 12/12/20 12/12/20 17:33 17:33 RDW 14.5 H Carbon Dioxide 33 H Glucose 152 H Calcium 10.3 H Critical Laboratory Results Reviewed: No Critical Results - Radiology Results Critical Radiology Results Reviewed: No Critical Results Discharge - Discharge Clinical Impression: Left leg swelling, Lumbar radicular pain Condition: Stable Disposition: HOME, SELF-CARE Instructions: Chronic Back Pain ([facility]), Radiculopathy ([facility]), Edema, Peripheral ([facility]) Additional Instructions: Take medications as prescribed. Apply ice or heat to the sore area. Try to elevate your leg. Follow-up with your doctor at the next available appointment. Follow-up sooner for worsening pain, fever, redness, numbness, tingling, weakness, any further concerns. Prescriptions: Diclofenac Sodium [Voltaren 50 Mg Tablet.] 50 mg PO BID #20 tablet. Referrals: MCKINLEY CONNOR MD [Primary Care Provider] - Follow up as needed
[2020-12-12 17:51] LABS: ABSOLUTE BASOPHILS # (AUTO) 0.1 10^3/uL (0.0-0.2); ABSOLUTE EOSINOPHILS # (AUTO) 0.2 10^3/uL (0.0-0.6); ABSOLUTE LYMPHOCYTES (AUTO) 2.2 10^3/uL (0.5-4.7); ABSOLUTE MONOCYTES (AUTO) 0.3 10^3/uL (0.1-1.4); ABSOLUTE NEUT (AUTO) 2.8 10^3/uL (1.7-8.2); BASOPHILS % (AUTO) 1.3 % (0-2); HEMATOCRIT 39.9 % (36.0-47.0); HEMOGLOBIN 13.5 g/dL (12.0-15.5); LYMPHOCYTES % (AUTO) 38.8 % (13-45); MEAN CORPUSCULAR HEMOGLOBIN 30.1 pg (27.0-33.4); MEAN CORPUSCULAR HGB CONC 33.7 g/dL (32.0-36.0); MEAN CORPUSCULAR VOLUME 89 fl (80-97); MONOCYTES % (AUTO) 6.1 % (3-13); PLATELET COUNT 201 10^3/uL (150-450); RED BLOOD COUNT 4.47 10^6/uL (3.72-5.28); RED CELL DISTRIBUTION WIDTH 14.5 % (11.5-14.0); SEGMENTED NEUTROPHILS % (AUTO) 50.8 % (42-78); TOTAL CELLS COUNTED % (AUTO) 100 %; WHITE BLOOD COUNT 5.6 10^3/uL (4.0-10.5)
[2020-12-12 18:06] LABS: ALBUMIN 4.4 g/dL (3.5-5.0); ALKALINE PHOSPHATASE 71 U/L (38-126); ANION GAP 8 (5-19); ASPARTATE AMINO TRANSFERASE 23 U/L (14-36); BILIRUBIN,DIRECT 0.2 mg/dL (0.0-0.4); BILIRUBIN,TOTAL 0.4 mg/dL (0.2-1.3); BLOOD UREA NITROGEN 18 mg/dL (7-20); CALCIUM 10.3 mg/dL (8.4-10.2); CARBON DIOXIDE 33 mmol/L (22-30); CHLORIDE 101 mmol/L (98-107); GLUCOSE 152 mg/dL (75-110); POTASSIUM 3.9 mmol/L (3.6-5.0); TOTAL PROTEIN 6.9 g/dL (6.3-8.2)
[2020-12-12 18:21] LABS: INTERNATIONAL RATION (INR) 0.99; PROTHROMBIN TIME 13.3 SEC (11.4-15.4)
[2020-12-12 18:22] LABS: PARTIAL THROMBOPLASTIN TIME 27.5 SEC (23.5-35.8)
--- NOTE | 2020-12-12 19:19 | RADIOLOGY REPORT (SQ) ---
EXAM DESCRIPTION: HIP LEFT AP/LATERAL IMAGES COMPLETED DATE/TIME: 12/12/2020 2:53 pm REASON FOR STUDY: Left hip pain COMPARISON: 05/08/2009 NUMBER OF VIEWS: Two views. TECHNIQUE: AP pelvis and additional frog legview of the left hip. LIMITATIONS: None. FINDINGS: MINERALIZATION: Normal. LEFT HIP: No acute fracture or dislocation. Minimal degenerative changes of the left hip. RIGHT HIP: No acute fracture dislocation. Mild degenerative changes of the right hip. PUBIS AND ISCHIUM: No fracture. PELVIS: No fracture. SACRUM: Partially obscured due to overlying bowel gas. No acute radiographic abnormality identified. LOWER LUMBAR SPINE: Degenerative changes are partially visualized. SOFT TISSUES: Vascular calcifications. OTHER: No other significant finding. IMPRESSION: No acute radiographic abnormality. Mild degenerative changes of the hips. TECHNICAL DOCUMENTATION: JOB ID: [id number] 2010 [employer]- All Rights Reserved Reading location - IP/workstation name: [email or web address]
--- NOTE | 2020-12-12 22:21 | RADIOLOGY REPORT (SQ) ---
EXAM DESCRIPTION: US EXTREMITY VEINS LEFT COMPLETED DATE/TME: 12/12/2020 21:54 CLINICAL HISTORY: 65 years, Female, Left leg pain and swelling COMPARISON: None. TECHNIQUE: LIMITATIONS: None. FINDINGS: The common femoral, femoral, popliteal, posterior tibial and peroneal veins are patent and compressible. Venous Doppler waveforms are unremarkable. IMPRESSION: No evidence of deep venous thrombosis. copyright 2010 [id number]- All Rights Reserved
== END 2020-12-12 21:25 | disposition home or self-care (01) ==
LOC: ER 15:27
DX: M54.16 Radiculopathy, lumbar region (principal); R22.42 Localized swelling, mass and lump, left lower limb; M25.562 Pain in left knee; E78.00 Pure hypercholesterolemia, unspecified; I10 Essential (primary) hypertension; E11.9 Type 2 diabetes mellitus without complications; Z86.19 Personal history of other infectious and parasitic diseases
CPT/HCPCS: 36415; 80053; 85025; 85610; 85730; 93971; 99285